=== PATIENT | male | born 1960 | race Caucasian/White ===

== ENCOUNTER 2017-05-04 07:39 | Emergency (ER) | payer OTHER ==
[~2017-05-04 07:39] MED LIST: ALLO300T PO; DICL1TAB5 PO; LANS30CA PO; LORA2TAB89 PO; MAGN400T22 PO; METO100T2 PO; OMEP20CA5 PO; PRED20TA PO; QUIN40TA7 PO; TORS20TA2 PO
[2017-05-04] MEDS ORDERED: MORPHINE SULFATE 4 MG/ML DISP.SYRIN. IV/SQ PRN (08:15)
--- NOTE | 2017-05-04 08:17 | PHYS DOC ---
General Chief Complaint: CHEST PAIN Stated Complaint: CHEST PAIN Time Seen by MD: 07:40 Source: patient, old records Exam Limitations: no limitations Problems: History of Present Illness Initial Comments Patient is a 56-year-old male with history of alcoholism and esophageal strictures/dilatation comes [facility] complaining of chest pain. Patient states that he went to bed feeling well last night, he awoke approximately 0600 today feeling lightheaded and nauseous with anterior chest pain radiating to his jaw described as an achiness 3 out of 10 no exacerbating or relieving factors. He has associated nausea and is dry heaving on ED arrival but has had no vomiting. He denies any abdominal pain, fever chills sweats dyspnea or dysphagia. Patient underwent esophageal dilatation for strictures approximately 10 years ago he did not follow-up as instructed for recheck. He has history of alcoholism at times drinking more than a pint of bourbon daily. He says he last drank yesterday "a few drinks." He denies history of alcohol withdrawal or seizures. Last by mouth intake was spaghetti yesterday for dinner, last bowel movement was this morning described as normal. Patient follows with Dr. Qureshi for primary care needs. Timing/Duration: 1-3 hours Severity: mild Modifying Factors: improves with other Associated Symptoms: chest pain, malaise, nausea/vomiting, other Allergies: Coded Allergies: Sulfa (Sulfonamide Antibiotics) (Verified Allergy, Intermediate, 03/26/14) Past Medical History Medical History: other (GERD, esophageal strictures, hypertension) Surgical History: other (esophageal dilatation, bladder repair, shoulder) Family History Significant Family History: cancer Social History Smoker: non-smoker Alcohol: heavy Drugs: none Review of Systems Constitutional: denies chills, denies diaphoresis, denies fever, denies malaise Respiratory: denies cough (she is of), denies shortness of breath, denies wheezing Cardiovascular: chest pain, denies edema, palpitations, denies syncope Gastrointestinal: denies abdominal pain, denies diarrhea, nausea, denies vomiting Genitourinary: denies dysuria, denies frequency, denies hematuria Musculoskeletal: denies back pain, denies joint swelling, neck pain Psychiatric/Neurological: denies headache, denies numbness, denies paresthesia Physical Exam General Appearance: WD/WN, no apparent distress Eyes: bilateral eye normal inspection, bilateral eye PERRL, bilateral eye EOMI Ear, Nose, Throat: hearing grossly normal, normal ENT inspection (dry membranes ), normal pharynx Neck: non-tender, full range of motion Respiratory: chest non-tender, normal breath sounds, no respiratory distress, no accessory muscle use Cardiovascular: normal peripheral pulses, no edema, tachycardia Gastrointestinal: normal bowel sounds, non tender, soft, no organomegaly, no pulsatile mass, other (large ventral hernia noted reducible and nontender) Back: no CVA tenderness, no vertebral tenderness Extremities: non-tender, normal inspection, no pedal edema, no calf tenderness , pelvis stable Neurologic/Psychiatric: chain splitter II-XII nml as tested, no motor/sensory deficits, alert, oriented x 3, depressed affect (flat affect no suicidal or homicidal ideation) Skin: normal color, warm/dry Orders, Labs, Meds EKG: Normal sinus rhythm 96 bpm, no STEMI criteria. Interpreted by Dr. Robin. PATIENT: NAVI WHITE ACCOUNT: [id number] : 1960 LOCATION: ER AGE: 56 SEX: M EXAM STATUS: REG ER ORD. PHYSICIAN: BETTE ROBIN DO REASON: cp, n/v PROCEDURE: ACUTE ABDOMEN SERIES Acute abdomen series with chest, 3 views, 05/04/2017: History: Chest pain and nausea Gas is present in large and small bowel without significant bowel distention. There are small scattered air-fluid levels in the GI tract. No free air is seen in the abdomen. There is no evidence of organomegaly. Lower pelvic calcifications are compatible with phleboliths. The heart size and pulmonary vascularity are normal. No pulmonary infiltrates are seen. There is no evidence of pleural fluid. IMPRESSION: Small scattered air-fluid levels in the GI tract suggest a mild ileus. DICTATED AND SIGNED BY: KRZYSZTOF CABRERA MD DATE: 05/04/17 0843 CC: BETTE ROBIN DO; NAVI QURESHI MD ~ mg 1.2, t. bili 1.4, lactic acid 3.4 500cc NS bolus, banana bag, zofran 4mg, pepcid 20mg IV given 1002: Due the patient's symptoms and risk factors he will need to be admitted to the hospital for serial cardiac enzymes to rule out FL. While inpatient his CKs will likely need to be monitored due to the recent cocaine abuse. Due to patient insurance issues he may not be admitted to this facility I discussed the patient with Dr. Castillo transfer team physician at [facility]. He took my report and his currently trying to procure a bed for the patient. We are waiting for the transfer team to return our call. 1020: Call received, pt accepted by Dr Castillo to [facility] for direct admission. Pt remains stable no new/progressive complaints. IMPRESSIONS: Chest pain rule out FL Hypomagnesemia Metabolic acidosis likely secondary to alcohol Cocaine abuse Alcohol dependence Tobaccoism Departure Time of Disposition: 10:12 Disposition: 02 XFER SHT-TRM HOSP Diagnosis: CP r/o FL, hypomagnesemia, cocaine abuse, etoh dep Condition: STABLE Additional Instructions: EMS transfer to [facility] Dr Castillo is accepting. BETTE ROBIN DO May 04, 2017 08:16
[2017-05-04 08:30] LABS: BASO # 0.1 x10^3/uL (0.0-0.2); BASO % 1 % (0-3); EOS # 0.1 x10^3/uL (0.0-0.7); EOS % 1 % (0-3); HEMATOCRIT 43.1 % (39.0-53.0); HEMOGLOBIN 14.6 g/dL (13.0-17.5); LYMPH # 1.9 x10^3/uL (1.0-4.8); LYMPH % 26 % (24-48); MEAN CORPUSCULAR HEMOGLOBIN 35 pg (25-35); MEAN CORPUSCULAR HGB CONC 34 g/dL (31-37); MEAN CORPUSCULAR VOLUME 102 fL (79-100); MONO # 0.6 x10^3/uL (0.0-1.1); MONO % 7 % (0-9); NEUT # 4.8 x10^3uL (1.8-7.7); NEUT % 64 % (31-73); PLATELET COUNT 190 x10^3/uL (140-400); RED BLOOD COUNT 4.22 x10^6/uL (4.30-5.70); RED CELL DISTRIBUTION WIDTH 14.2 % (11.5-14.5); WHITE BLOOD COUNT 7.4 x10^3/uL (4.0-11.0)
[2017-05-04] MEDS ORDERED: NITROGLYCERIN SUBLINGUAL 0.4 MG BOTTLE OF 25. SL PRN (08:30)
[2017-05-04] MEDS ORDERED: FAMOTIDINE 20 MG/2 ML VIAL IVP ONE (08:30)
[2017-05-04] MEDS ORDERED: IV NORMAL SALINE 1,000ML 500 ML IV SCH (08:30)
[2017-05-04] MEDS ORDERED: ONDANSETRON PF 4 MG/2 ML VIAL. IV ONE (08:30)
[2017-05-04] MEDS ORDERED: ASPIRIN 81 MG TAB.CHEW PO ONE (08:30)
[2017-05-04 08:42] LABS: ALBUMIN 3.7 g/dL (3.4-5.0); ALBUMIN/GLOBULIN RATIO 1.1 (1.0-1.7); CALCIUM 8.8 mg/dL (8.5-10.1); CREATININE 0.9 mg/dL (0.7-1.3); GFR 87.9; MAGNESIUM 1.2 mg/dL (1.8-2.4); POTASSIUM 3.8 mmol/L (3.5-5.1); TOTAL BILIRUBIN 1.4 mg/dL (0.2-1.0); TOTAL PROTEIN 7.2 g/dL (6.4-8.2)
--- NOTE | 2017-05-04 08:47 | RAD ---
Acute abdomen series with chest, 3 views, 05/04/2017: History: Chest pain and nausea Gas is present in large and small bowel without significant bowel distention. There are small scattered air-fluid levels in the GI tract. No free air is seen in the abdomen. There is no evidence of organomegaly. Lower pelvic calcifications are compatible with phleboliths. The heart size and pulmonary vascularity are normal. No pulmonary infiltrates are seen. There is no evidence of pleural fluid. IMPRESSION: Small scattered air-fluid levels in the GI tract suggest a mild ileus.
[2017-05-04 08:53] LABS: AMPHETAMINE/METHAMPHETAMINE NEG (NEG); BARBITURATES NEG (NEG); BENZODIAZEPINES NEG (NEG); CANNABINOIDS NEG (NEG); COCAINE POS (NEG); METHADONE NEG (NEG); OPIATES NEG (NEG); PHENCYCLIDINE NEG (NEG)
[2017-05-04 09:00] LABS: BACTERIA,URINE 0 /HPF (0-FEW); BILIRUBIN,URINE NEG (NEG); CLARITY,URINE HAZY; COLOR,URINE AMBER; GLUCOSE,URINE NEG (NEG); HYALINE CASTS, URINE OCC /HPF; NITRITE,URINE NEG (NEG); RBC,URINE 0 /HPF (0-2); SQUAMOUS EPITHELIAL CELL,UR OCC /LPF; UROBILINOGEN,URINE 1 mg/dL (0.2 mg/dL); WBC,URINE 0 /HPF (0-4)
[2017-05-04] MEDS ORDERED: MAGNESIUM CHLORIDE ER 64 MG TABLET.ER PO SCH (09:00)
[2017-05-04] MEDS ORDERED: MVI, ADULT NO.4 WITH VIT K 10 ML, FOLIC ACID SYRINGE for ER 1 MG, THIAMINE 100 MG in IV... IV SCH ×4 (09:30)
[2017-05-04 11:55] VITALS: BP 137/92
--- NOTE | 2017-05-04 15:11 | EKG ---
[address] [address] Test Date: 2017-05-04 Test Time: 08:05:03 Pat Name: NAVI WHITE Department: Room: Gender: M Director Life: BART : 1960 Requested By: BETTE ROBIN Order Number: [id number] Reading MD: Indra Arzola Measurements Intervals [place] Rate: 96 P: 34 CT: 136 QRS: 39 QRSD: 74 T: 20 QT: 346 QTc: 444 Interpretive Statements SINUS RHYTHM NON-SPECIFIC ST/T CHANGES Electronically Signed On 05-07-2017 7:49:53 CDT by Indra Arzola
[2017-05-05] MEDS ORDERED: MAGNESIUM CHLORIDE ER 64 MG TABLET.ER PO SCH (09:00)
== END 2017-05-04 11:55 | disposition short-term general hospital (02) ==
LOC: ER 07:39
DX: R07.89 Other chest pain (principal); E83.42 Hypomagnesemia; E87.2 Acidosis; F14.10 Cocaine abuse, uncomplicated; F10.20 Alcohol dependence, uncomplicated; K21.9 Gastro-esophageal reflux disease without esophagitis; I10 Essential (primary) hypertension; Z88.2 Allergy status to sulfonamides
CPT/HCPCS: 36415; 74022; 80053; 80307; 81001; 82550; 83605; 83690; 83735; 83880; 84484; 85027; 85379; 85610; 85730; 87040; 93005; 96361; 96365; 96375; 99285; G0480; J2405; S0028; G0479; J7030

== ENCOUNTER → 2019-12-27 | Outpatient (CLI) | payer OTHER ==
[~2019-12-27] MED LIST changes: -METO100T2 PO; +METO100T7 PO; +QUIN40TA16 PO; -QUIN40TA7 PO
[2019-12-27 10:39] LABS: BASO # 0.1 x10^3/uL (0.0-0.2); BASO % 1 % (0-3); EOS # 0.1 x10^3/uL (0.0-0.7); EOS % 1 % (0-3); HEMATOCRIT 38.7 % (39.0-53.0); HEMOGLOBIN 12.7 g/dL (13.0-17.5); LYMPH # 1.8 x10^3/uL (1.0-4.8); LYMPH % 35 % (24-48); MEAN CORPUSCULAR HEMOGLOBIN 35 pg (25-35); MEAN CORPUSCULAR HGB CONC 33 g/dL (31-37); MEAN CORPUSCULAR VOLUME 105 fL (79-100); MONO # 0.6 x10^3/uL (0.0-1.1); MONO % 12 % (0-9); NEUT # 2.7 x10^3uL (1.8-7.7); NEUT % 51 % (31-73); PLATELET COUNT 125 x10^3/uL (140-400); RED CELL DISTRIBUTION WIDTH 14.9 % (11.5-14.5); WHITE BLOOD COUNT 5.2 x10^3/uL (4.0-11.0)
[2019-12-27 10:47] LABS: CALCIUM 8.1 mg/dL (8.5-10.1); CREATININE 0.9 mg/dL (0.7-1.3); DIRECT BILIRUBIN 0.2 mg/dL (0.0-0.2); POTASSIUM 4.1 mmol/L (3.5-5.1); TOTAL BILIRUBIN 0.4 mg/dL (0.2-1.0); TOTAL PROTEIN 6.5 g/dL (6.4-8.2); URIC ACID 4.4 mg/dL (3.5-7.2)
[2019-12-27 18:52] LABS: FREE T4 0.82 ng/dL (0.76-1.46); THYROID STIM HORMONE (TSH) 1.972 uIU/mL (0.358-3.740)
== END | disposition home or self-care (01) ==
LOC: PMG 09:53
PROVIDERS: ATTEND Physician Assistant
DX: I10 Essential (primary) hypertension (principal); R42 Dizziness and giddiness; K21.9 Gastro-esophageal reflux disease without esophagitis; M10.9 Gout, unspecified; R53.1 Weakness; R26.89 Other abnormalities of gait and mobility
CPT/HCPCS: 36415; 80048; 80061; 80076; 84439; 84443; 84550; 85025

== ENCOUNTER → 2020-02-06 | Outpatient (CLI) | payer OTHER ==
[2020-02-07 21:06] LABS: ANA INTERP Negative (.)
[2020-02-08 18:07] LABS: ALBUM 3.4 g/dL (2.9-4.4); ALPHA 1 0.3 g/dL (0.0-0.4); ALPHA 2 0.8 g/dL (0.4-1.0); BETA 1.3 g/dL (0.7-1.3); GAMMA 0.7 g/dL (0.4-1.8); PROTEIN TOTAL 6.5 g/dL (6.0-8.5); SPEP AG RATIO 1.1 (0.7-1.7)
== END | disposition home or self-care (01) ==
LOC: LAB 11:10
PROVIDERS: ATTEND Psychiatry & Neurology Neurology with Special Qualifications in Child Neurology
DX: G62.1 Alcoholic polyneuropathy (principal); R26.9 Unspecified abnormalities of gait and mobility; F10.20 Alcohol dependence, uncomplicated; R20.0 Anesthesia of skin; R53.1 Weakness
CPT/HCPCS: 36415; 82607; 82746; 84165; 86038; 86140

== ENCOUNTER → 2020-02-06 | Outpatient (CLI) | payer OTHER ==
--- NOTE | 2020-02-06 11:36 | RAD ---
EXAM: Abdomen sonogram. HISTORY: Elevated liver enzyme laboratory values. TECHNIQUE: Sonographic imaging of the abdomen was performed. COMPARISON: None. FINDINGS: The liver is normal in size. There is hepatic steatosis. There is mild common bile duct dilatation for patient age, measuring 8.5 mm. There is cholelithiasis. There is pericholecystic fluid. No gallbladder wall thickening is seen. The right kidney measures 8.6 cm [id number]. There is no hydronephrosis. The pancreas and inferior vena cava are obscured due to bowel gas. IMPRESSION: 1. Hepatic steatosis. 2. Cholelithiasis. There is nonspecific pericholecystic fluid. However, there is no gallbladder wall thickening to suggest cholecystitis. Correlate with symptomatology. 3. Decreased right renal size due to measurement technique or mild atrophy. 4. Dilated common bile duct. ERCP or MRCP may be useful if there is concern for a sonographically occult obstructing etiology. Electronically signed by: Jany Day MD (02/06/2020 11:33 AM) [id number]
== END | disposition home or self-care (01) ==
LOC: US 10:48
PROVIDERS: ATTEND Physician Assistant
DX: K76.0 Fatty (change of) liver, not elsewhere classified (principal); K80.20 Calculus of gallbladder without cholecystitis without obstruction; K83.8 Other specified diseases of biliary tract
CPT/HCPCS: 76705

== ENCOUNTER 2020-05-21 10:46 | Inpatient (IN) | payer OTHER ==
[~2020-05-21] VITALS: Ht 165.1 cm; Wt 61.0 kg
[2020-05-21 11:41] LABS: BASO % 0 % (0-3); EOS % 1 % (0-3); HEMATOCRIT 37.7 % (39.0-53.0); HEMOGLOBIN 12.8 g/dL (13.0-17.5); LYMPH # 1.1 x10^3/uL (1.0-4.8); LYMPH % 23 % (24-48); MEAN CORPUSCULAR HEMOGLOBIN 35 pg (25-35); MEAN CORPUSCULAR HGB CONC 34 g/dL (31-37); MEAN CORPUSCULAR VOLUME 103 fL (79-100); MONO # 0.6 x10^3/uL (0.0-1.1); MONO % 13 % (0-9); NEUT # 3.1 x10^3uL (1.8-7.7); NEUT % 63 % (31-73); PLATELET COUNT 96 x10^3/uL (140-400); RED BLOOD COUNT 3.67 x10^6/uL (4.30-5.70); RED CELL DISTRIBUTION WIDTH 14.8 % (11.5-14.5); WHITE BLOOD COUNT 4.9 x10^3/uL (4.0-11.0)
[2020-05-21] MEDS ORDERED: IV NORMAL SALINE 1,000ML 1,000 ML IV ONE (11:45)
[2020-05-21 11:47] LABS: CALCIUM 8.3 mg/dL (8.5-10.1); CREATININE 2.8 mg/dL (0.7-1.3); GFR 23.5
[2020-05-21 11:53] LABS: ALBUMIN 3.2 g/dL (3.4-5.0); MAGNESIUM 1.2 mg/dL (1.8-2.4); TOTAL BILIRUBIN 1.7 mg/dL (0.2-1.0); TOTAL PROTEIN 6.5 g/dL (6.4-8.2)
--- NOTE | 2020-05-21 12:10 | PHYS DOC ---
Past History Past Medical History: Cancer, Hypertension, Pancreatitis Past Surgical History: Other Additional Past Surgical Histo: BLADDER REPAIR S/P FALL; MULTIPLE SKIN CANCER R EOVED Smoking: Non-smoker Alcohol Use: Heavy Drug Use: None General Adult EDM: Chief Complaint: HYPOTENSION HPI: HPI: Patient is a 59-year-old male who was taken here for evaluation from home due to generalized weakness and low blood pressure. Patient has history of skin cancer, he is under treatment currently. He had not been feeling well since November. Patient said he has no appetite, he does not eat much. His home health nurse came by and check on him today and found that her blood pressure was low so she recommended for him to come in for evaluation. Patient denies any cough or fever, no nausea vomiting. Patient feels aching all over. Review of Systems: Review of Systems: Constitutional: Denies fever or chills . Positive for generalized weakness. Eyes: Denies change in visual acuity HENT: Denies nasal congestion or sore throat Respiratory: Denies cough or shortness of breath Cardiovascular: Denies chest pain or edema GI: Denies abdominal pain, nausea, vomiting, bloody stools or diarrhea : Denies dysuria Musculoskeletal: Denies back pain , positive for joint pain Integument: Denies rash Neurologic: Denies headache, focal weakness or sensory changes Endocrine: Denies polyuria or polydipsia Lymphatic: Denies swollen glands Psychiatric: Denies depression or anxiety Heart Score: Risk Factors: Risk Factors: DM, Current or recent (<one month) smoker, HTN, HLP, family history of CAD, obesity. Risk Scores: Score 0 - 3: 2.5% MACE over next 6 weeks - Discharge Home Score 4 - 6: 20.3% MACE over next 6 weeks - Admit for Clinical Observation Score 7 - 10: 72.7% MACE over next 6 weeks - Early Invasive Strategies Current Medications: Current Meds: Current Medications Medications (Trade) Dose Ordered Sig/Alyssia Start Time Stop Time Status Last Admin Dose Admin Magnesium Sulfate 50 ml @ 25 mls/hr 1X ONCE 05/21/20 12:15 05/21/20 14:14 UNV Sodium Chloride 1,000 ml @ 1,000 mls/hr 1X ONCE 05/21/20 11:45 05/21/20 12:44 05/21/20 11:43 1,000 MLS/HR Allergies: Allergies: Allergies Coded Allergies Type Severity Reaction Last Updated Verified Sulfa (Sulfonamide Antibiotics) Allergy Intermediate 05/21/20 Yes Physical Exam: PE: Constitutional: Well developed, well nourished, no acute distress, non-toxic appearance. [] HENT: Normocephalic, atraumatic, bilateral external ears normal, oropharynx moist, no oral exudates, nose normal. [] Eyes: PERRLA, EOMI, conjunctiva normal, no discharge. [] Neck: Normal range of motion, no tenderness, supple, no stridor. [] Cardiovascular:Heart rate regular rhythm, no murmur [] Lungs & Thorax: Bilateral breath sounds clear to auscultation [] Abdomen: Bowel sounds normal, soft, no tenderness, no masses, no pulsatile masses. [] Skin: Warm, dry, no erythema, no rash. [] Back: No tenderness, no CVA tenderness. [] Extremities: No tenderness, no cyanosis, no clubbing, ROM intact, no edema. [] Neurologic: Alert and oriented X 3, normal motor function, normal sensory function, no focal deficits noted. [] Psychologic: Affect normal, judgement normal, mood normal. [] Current Patient Data: Labs: Laboratory Tests Test 05/21/20 11:25 White Blood Count 4.9 x10^3/uL (4.0-11.0) Red Blood Count 3.67 x10^6/uL (4.30-5.70) L Hemoglobin 12.8 g/dL (13.0-17.5) L Hematocrit 37.7 % (39.0-53.0) L Mean Corpuscular Volume 103 fL (79-100) H Mean Corpuscular Hemoglobin 35 pg (25-35) Mean Corpuscular Hemoglobin Concent 34 g/dL (31-37) Red Cell Distribution Width 14.8 % (11.5-14.5) H Platelet Count 96 x10^3/uL (140-400) L Neutrophils (%) (Auto) 63 % (31-73) Lymphocytes (%) (Auto) 23 % (24-48) L Monocytes (%) (Auto) 13 % (0-9) H Eosinophils (%) (Auto) 1 % (0-3) Basophils (%) (Auto) 0 % (0-3) Neutrophils # (Auto) 3.1 x10^3uL (1.8-7.7) Lymphocytes # (Auto) 1.1 x10^3/uL (1.0-4.8) Monocytes # (Auto) 0.6 x10^3/uL (0.0-1.1) Eosinophils # (Auto) 0.0 x10^3/uL (0.0-0.7) Basophils # (Auto) 0.0 x10^3/uL (0.0-0.2) Sodium Level 140 mmol/L (136-145) Potassium Level 4.0 mmol/L (3.5-5.1) Chloride Level 100 mmol/L (98-107) Carbon Dioxide Level 26 mmol/L (21-32) Anion Gap 14 (6-14) Blood Urea Nitrogen 71 mg/dL (8-26) H Creatinine 2.8 mg/dL (0.7-1.3) H Estimated GFR (Cockcroft-Gault) 23.5 BUN/Creatinine Ratio 25 (6-20) H Glucose Level 120 mg/dL (70-99) H Calcium Level 8.3 mg/dL (8.5-10.1) L Magnesium Level 1.2 mg/dL (1.8-2.4) L Total Bilirubin 1.7 mg/dL (0.2-1.0) H Aspartate Amino Transferase (AST) 43 U/L (15-37) H Alanine Aminotransferase (ALT) 43 U/L (16-63) Alkaline Phosphatase 105 U/L (46-116) Total Protein 6.5 g/dL (6.4-8.2) Albumin 3.2 g/dL (3.4-5.0) L Albumin/Globulin Ratio 1.0 (1.0-1.7) Vital Signs: Vital Signs Date Time Temp Pulse Resp B/P (MAP) Pulse Ox O2 Delivery O2 Flow Rate FiO2 05/21/20 11:30 92 12 140/66 (90) 100 Room Air 05/21/20 11:05 98.9 EKG: EKG: [] Radiology/Procedures: Radiology/Procedures: [] Course & Med Decision Making: Course & Med Decision Making Pertinent Labs and Imaging studies reviewed. (See chart for details) Patient is a 59-year-old male who was evaluated here in the ER due to general weakness, body ache. Patient was found to be dehydrated, acute renal failure, low magnesium level. Patient was given IV fluids and 2 g of magnesium sulfate replacement. Patient will need to be admitted to hospital for further evaluation. Discussed with Dr. Lynn who wanted to admit patient to this hospital for IV hydration first. Dragon Disclaimer: Dragon Disclaimer: This electronic medical record was generated, in whole or in part, using a voice recognition dictation system. Departure Departure: Impression: Primary Impression: Acute renal failure Additional Impressions: Dehydration Hypomagnesemia syndrome Disposition: ADMITTED INPATIENT (Dr. Lynn) Condition: STABLE Referrals: EDILIA SANDOVAL (PCP) Justification of Admission: Justification of Admission: Justification of Admission Dx: Yes Acute Renal Failure: 3-Fold Rise in Serum Crea SAGE MAYER DO May 21, 2020 12:10
[2020-05-21] MEDS ORDERED: MAGNESIUM SULFATE 2GM 50 ML IV ONE (12:15)
[2020-05-21 12:29] LABS: BILIRUBIN,URINE NEG (NEG); CLARITY,URINE HAZY; COLOR,URINE YELLOW; GLUCOSE,URINE NEG (NEG)
[2020-05-21 12:30] LABS: BACTERIA,URINE 0 /HPF (0-FEW); NITRITE,URINE NEG (NEG); SQUAMOUS EPITHELIAL CELL,UR FEW /LPF; UROBILINOGEN,URINE 0.2 mg/dL (0.2 mg/dL)
[2020-05-21 12:31] LABS: HYALINE CASTS, URINE FEW /HPF
[2020-05-21] MEDS: IV NORMAL SALINE 1,000ML 1,000 ML IV SCH (13:50)
[2020-05-21 15:47] VITALS: BP 103/66
[2020-05-21] MEDS ORDERED: ONDANSETRON PF 4 MG/2 ML VIAL. IVP PRN (16:00)
[2020-05-21] MEDS ORDERED: ACETAMINOPHEN 325 MG TABLET PO PRN (16:00)
--- NOTE | 2020-05-21 16:00 | NUR ---
The patient, NAVI WHITE, 59 y/o, M admitted by NELLY LUA MD, was given written information regarding hospital policies, unit procedures and contact persons. Valuables were checked and belongings at bedside. Pt admitted from ED with severe dehydration. pt states he has been generally weak since November. states he uses a wheelchair to get around at home and "cannot walk".
[2020-05-21 18:00] VITALS: BP 130/74
[2020-05-21] MEDS ORDERED: DOXY100C2 PO (18:03)
--- NOTE | 2020-05-21 18:23 | HP ---
ADMIT DATE: 05/21/2020 HISTORY OF PRESENT ILLNESS: The patient is a 59-year-old male patient who was brought to the Emergency Room for evaluation from home due to generalized weakness and low blood pressure. He has a history of skin cancer. He is under treatment. He apparently has not been feeling well since November. According to his , he has been alcoholic throughout his life, but his drinking has worsened since she was fired from [employer] in October of this year. She stated he has poor appetite. He does not eat much. He has home health nurse came by and check on him and found his blood pressure to be still low, so I recommended for him to come in for evaluation. The patient denies any cough, fever, nausea, vomiting. He apparently was seen before at [facility] by Dr. Mcdermott and has had an MRI, which was unremarkable. He also had a skin cancer that was removed about 8 days ago from his right shoulder; however, he is not giving any useful information. He claims that he has some form of odynophagia and that he cannot eat or drink because it is painful. He denied any previous medical illness, although his said he is known to have hypertension, pancreatitis as well as skin cancer. PAST SURGICAL HISTORY: Significant for bladder repair, status post fall and multiple skin cancer removed. ALLERGIES: He is allergic to SULFA DRUGS. MEDICATIONS: He is on no medication by prescription or otherwise. FAMILY HISTORY: He has one brother still alive and older. One sister still alive and younger. Does not know whether have any medical problem. His father at the age of 70 because of CVA. His mother at the age of 63, but does not know the cause of her . SOCIAL HISTORY: He is , has no children. He does not smoke or use drugs, but he is a heavy alcohol drinker. According to his , he has been a heavy drinker all his life, but his drinking habit has worsened since October when she was fired from [employer]. He used to be steal batteries. He stated that he has been unable to walk, since November has been mostly wheelchair bound. PHYSICAL EXAMINATION: GENERAL: On arrival to the Emergency Room, he looked markedly emaciated with no pallor, jaundice, cyanosis or thyromegaly. No jugular venous distention. No limb edema. VITAL SIGNS: His heart rate was 97, blood pressure was 107/68, temperature was 98.9, respiratory rate was 15 and oxygen saturation was 100%. HEAD, EYES, EARS, NOSE AND THROAT: Normocephalic, atraumatic. NECK: Supple. HEART: Showed normal first and second heart sounds. No gallop or murmur. CHEST: Clear to auscultation. No crepitation or rhonchi. ABDOMEN: Distended with tenderness and dull percussion noted. NEUROLOGIC: The patient is awake, alert, but seemed to be very slow to answer. All his cranial nerves seem to be grossly intact. He seems to be able to move his upper extremities to much good extent than lower extremities, apparently was mostly wheelchair bound. LABORATORY DATA: His lab work this morning showed a white cell count of 4900, hemoglobin 12.8, hematocrit 37.7, MCV 103 and platelet count of 96,000 with normal manual differential. His serum sodium was 140, potassium 4, chloride 100, bicarbonate 26, anion gap of 14, BUN 71, creatinine 2.8, estimated GFR was 23 mL per minute. His glucose 129, calcium was 8.3, magnesium was 1.2. Total bilirubin 1.7. AST was slightly elevated. ALT and alkaline phosphatase normal. Total protein 6.5, albumin was 3.2. His urinalysis showed the urine was yellow, hazy with a pH of 5, specific gravity 1.015. The urine was negative for protein, glucose, trace of ketones, negative for blood, nitrite or leukocyte esterase, 3-5 rbc's, 5-10 wbc's, and no bacteria. ASSESSMENT AND PLAN: In summary, this is a 59-year-old male patient who apparently has been a heavy drinker before. According to his , his drinking habit has worsened since she was fired from [employer]. He has been wheelchair bound, unable to walk since November of this year. He did complain that he has what seemed to be dysphagia and odynophagia, has been able to eat and drink and was admitted with acute renal failure and he has had bladder repair that he sustained after a fall. My plan is to continue with IV fluid. I am concerned that he might have bladder outlet obstruction and we will arrange for him to scan his bladder and we might have to do a CT scan of the abdomen and pelvis without contrast. So in summary, this is a 59-year-old male patient with marked weakness and almost functional paraplegia, acute kidney injury; I do not have any baseline to compare with. His creatinine was 0.9 mg on 12/27/2019 indicating that this is an acute on chronic kidney injury. NELLY LUA MD DR: LEE/salinas JOB#: [id number] / [id number]
[2020-05-21] MEDS ORDERED: chlordiazePOXIDE HCL 25 MG CAPSULE PO PRN (18:30)
--- NOTE | 2020-05-21 19:25 | RAD ---
Study: CT abdomen/pelvis without intravenous contrast Indication: Abdominal pain and abdominal distention. Comparison: None. Technique: Helical CT imaging performed of the abdomen and pelvis without the use of intravenous contrast. Sagittal and coronal reformats were obtained. One or more of the following individualized dose reduction techniques were utilized for this examination: 1. Automated exposure control 2. Adjustment of the mA and/or kV according to patient size 3. Use of iterative reconstruction technique. Findings: Inherently limited evaluation without intravenous contrast. Mild atelectasis at the lung bases. Hepatic steatosis. Gallstones and likely layering sludge without CT findings of acute cholecystitis. Unremarkable pancreas, spleen and adrenal glands. No acute process seen to involve either kidney or collecting system. Within normal limits bladder. Scattered colonic diverticuli without diverticulitis. The anorectal junction appears mildly thick walled but circumferentially and there are no active inflammatory changes. Just the anterior margin of a short segment of transverse colon herniates through the ventral abdominal wall, image 62 series 2. The appendix is normal. Nonobstructed small bowel. A small portion of small bowel wall partially herniates through the ventral abdominal wall as seen on image 75 series 9. No pneumatosis or perforation. Unremarkable stomach. Presumed duodenal diverticulum at the pancreatic head, image 46 series 2. No inflammatory changes around this finding to suggest an ulcer. Minimal calcific atherosclerosis. Nonaneurysmal aorta. No lymphadenopathy. No free fluid or gas. No acute or aggressive osseous process. Advanced discogenic arthrosis at L5-S1. Impression: 1. Just the antimesenteric border of a short segment of transverse colon herniates through the ventral midline abdominal wall 7 to 8 cm above the umbilicus (image 45 series 5). There are no findings of ischemia to the colon at this location but correlate for pinpoint tenderness to suggest incarceration of a Moseley hernia. 2. About 4 cm above the umbilicus, the antimesenteric border of very small segment of small bowel also protrudes into the ventral fascia but does not fully herniate (image 51 series 5). This is favored unlikely a symptomatic finding at this time. No bowel obstruction or perforation. 3. Gallstones and layering sludge without findings of acute cholecystitis. 4. Hepatic steatosis. Electronically signed by: NASIR ANDRADE MD (05/21/2020 7:22 PM) [id number]
--- NOTE | 2020-05-21 22:03 | NUR ---
PT with noted apneic episodes while asleep, desaturating to lowest 88% on RA. PT with immediate recovery, less than 3 seconds with saturations back to his normal of around 98%.
[2020-05-21 23:02] VITALS: BP 104/71
[2020-05-22] MEDS: IV NORMAL SALINE 1,000ML 1,000 ML IV SCH ×3 (00:16→20:36)
[2020-05-22 08:00] VITALS: BP 129/87
[2020-05-22] MEDS: chlordiazePOXIDE HCL 25 MG CAPSULE PO PRN (08:28)
[2020-05-22 09:16] LABS: BASO % 1 % (0-3); EOS % 1 % (0-3); HEMATOCRIT 37.6 % (39.0-53.0); HEMOGLOBIN 12.5 g/dL (13.0-17.5); LYMPH # 1.2 x10^3/uL (1.0-4.8); LYMPH % 35 % (24-48); MEAN CORPUSCULAR HEMOGLOBIN 35 pg (25-35); MEAN CORPUSCULAR HGB CONC 33 g/dL (31-37); MEAN CORPUSCULAR VOLUME 104 fL (79-100); MONO # 0.3 x10^3/uL (0.0-1.1); MONO % 10 % (0-9); NEUT # 1.8 x10^3uL (1.8-7.7); NEUT % 53 % (31-73); PLATELET COUNT 84 x10^3/uL (140-400); RED BLOOD COUNT 3.61 x10^6/uL (4.30-5.70); RED CELL DISTRIBUTION WIDTH 14.8 % (11.5-14.5); WHITE BLOOD COUNT 3.3 x10^3/uL (4.0-11.0)
[2020-05-22 09:30] LABS: ALBUMIN 2.9 g/dL (3.4-5.0); ALBUMIN/GLOBULIN RATIO 0.9 (1.0-1.7); CALCIUM 8.5 mg/dL (8.5-10.1); CREATININE 1.2 mg/dL (0.7-1.3); GFR 62.4; MAGNESIUM 1.4 mg/dL (1.8-2.4); POTASSIUM 3.8 mmol/L (3.5-5.1); TOTAL BILIRUBIN 1.2 mg/dL (0.2-1.0); TOTAL PROTEIN 6.3 g/dL (6.4-8.2)
[2020-05-22] MEDS: MVI, ADULT NO.4 WITH VIT K 10 ML, THIAMINE INJ 100 MG, FOLIC ACID INJ 1 MG in IV NORMAL... IV SCH ×4 (09:39)
--- NOTE | 2020-05-22 09:50 | NUR ---
Pt continues to be a poor historian. He does know the date and place. PT is starting to feel more anxious. Labs was unsuccessful after 3 attempts this am. Ultrasound was used to draw brachial vein in upper arm. Delta JOHNSON
[2020-05-22] MEDS ORDERED: MAGNESIUM SULFATE 2GM 50 ML IV ONE ×2 (10:30→12:40)
[2020-05-22 11:00] VITALS: BP 102/67
--- NOTE | 2020-05-22 15:54 | NUR ---
pt was assisted to chair by pt/ot. He did walk with the walker to the chair with total assistance than was unable to sit up in the chair and was falling over. PT continues to be severely weak and cannot care for him at home. Talked about swing unit or nursing rehab. Delta JOHNSON
[2020-05-22 16:16] VITALS: BP 110/67
--- NOTE | 2020-05-22 18:55 | RAD ---
STUDY: 1. CT cervical spine without contrast 2. CT thoracic spine without contrast 2. CT lumbar spine without contrast INDICATION: Arm weakness. Back pain. Bowel incontinence. COMPARISON: CT abdomen/pelvis 05/21/2020. TECHNIQUE: Axial CT imaging of the cervical, thoracic and lumbar spine performed without the use of intravenous or intrathecal contrast. Coronal and sagittal reformats were obtained. One or more of the following individualized dose reduction techniques were utilized for this examination: 1. Automated exposure control 2. Adjustment of the mA and/or kV according to patient size 3. Use of iterative reconstruction technique. FINDINGS: Cervical spine: No acute fracture or aggressive osseous process. No traumatic malalignment. Discogenic arthrosis is greatest at C5-C6 and C6-C7. Uncovertebral joint hypertrophy most notable at these levels as well. Varying extent of facet degeneration. No severe osseous encroachment on the central canal. Multilevel osseous neural foraminal encroachment but appearing greatest on the left at C5-C6 and C6-C7. No prevertebral edema. Thoracic spine: No acute fracture or aggressive osseous process. Maintained vertebral body height and alignment. No advanced discogenic arthrosis. Mild facet degeneration at a few levels but greatest on the left at T1-T2 and T2-T3. No significant osseous encroachment on the central canal or neural foramina. No prevertebral or dorsal paraspinous edema. No acute abnormality seen to involve the visualized mediastinal contents or lungs. Lumbar spine: No acute fracture or aggressive osseous process. Maintained vertebral body height. Discogenic arthrosis at L5-S1 is moderate in severity. No advanced facet degeneration. No osseous encroachment on the central canal. Mild left and moderate right osseous neural foraminal stenosis. Intra-abdominal findings as detailed on the recent CT abdomen/pelvis. IMPRESSION: Cervical spine: 1. No acute osseous abnormality. 2. Multilevel, multifactorial degenerative changes collectively greatest at C5-C6 and C6-C7. No severe osseous encroachment on the central canal. Neural foraminal stenosis at multiple levels greatest on the left at C5-C6 and C6-C7. Any soft tissue causes of stenosis would be better assessed with CT myelography or MRI. Thoracic spine: 1. No acute osseous abnormality. 2. Relatively mild degenerative changes without significant central canal or neural foraminal stenosis on this unenhanced CT. Lumbar spine: 1. No acute osseous abnormality. 2. Degenerative changes greatest at L5-S1. Moderate right and mild left osseous neural foraminal stenosis at this level. No significant central canal narrowing is identified. Electronically signed by: NASIR ANDRADE MD (05/22/2020 6:52 PM) [id number]
[2020-05-22 19:50] VITALS: BP_SYST 101; BP_SYST 109; BP_DIAS 63; BP_DIAS 81
--- NOTE | 2020-05-22 20:14 | PN ---
DATE: 05/22/2020 SUBJECTIVE: The patient is resting, slightly propped up in bed, in no apparent distress. He is definitely more awake, alert, responding it with more than yesterday. CT scan showed no evidence of any obstruction. His lab work actually is improving. His creatinine is down from 2.8-1.2 and BUN from 71-33. His magnesium continued to be low, so we will give him magnesium. He is on a banana bag and so far, he did not show any evidence of withdrawal or seizures. We will consult the physical therapy today to evaluate his mobility and continue with IV fluid and magnesium supplementation and hopefully once all that normalized, he can be discharged home tomorrow. PHYSICAL EXAMINATION: GENERAL: When I examined him, he looked well and was clearly in no apparent distress. No pallor, jaundice, cyanosis or thyromegaly. No jugular venous distention or limb edema. VITAL SIGNS: His heart rate was 80, blood pressure was 129/87, temperature was 98.4, respiratory rate was 13 and oxygen saturation was 98%. HEENT: Showed normocephalic, atraumatic. NECK: Supple. HEART: Showed normal first and second heart sounds. No gallop, rub or murmur. CHEST: Clear to auscultation. No crepitation or rhonchi. ABDOMEN: Slightly distended, soft, nontender. NEUROLOGIC: He is definitely more awake, alert. He moves his upper extremities to much good extent than lower extremities. He apparently is mostly wheelchair bound. His intake over the last 24 hours was 2050, output was 600. LABORATORY DATA: As of this morning, his serum sodium was 145, potassium 3.8, chloride 108, bicarbonate 23, anion gap of 14, BUN 33, creatinine 1.2, estimated GFR was 62 mL per minute, his glucose 158, calcium was 8.5, magnesium was 1.4. Total bilirubin, AST, ALT, alkaline phosphatase were normal. Total protein was 6.3, albumin was 2.9. His white cell count was 3300, hemoglobin 12.5, hematocrit 37.6, MCV 104 and platelet count of 84,000. His urinalysis was essentially unremarkable. ASSESSMENT: 1. Functional paraplegia without any clearcut examination. Apparently according to his , his drinking habit has worsened since she was fired from [facility] [employer] and has been wheelchair bound, unable to walk since November of this year. He did complain of dysphagia and odynophagia. Apparently, his intake was extremely poor. 2. Acute kidney injury, it is resolving. His creatinine is down from 2.8-1.2. 3. Hypomagnesemia, for which he received 2 grams of magnesium sulfate and started on magnesium oxide. PLAN: My plan is to continue with IV fluid, give him more magnesium IV and orally and consult physical and occupational therapy and decide on further management according to his response. NELLY LUA MD DR: LEE/salinas JOB#: [id number] / [id number]
[2020-05-23] VITALS: BP 135/86
--- NOTE | 2020-05-23 00:34 | CONS ---
DATE OF CONSULTATION: 05/22/2020 NEUROLOGY CONSULTATION REFERRING PHYSICIAN: Dr. Lynn REASON FOR CONSULTATION: Severe weakness of the lower extremities. HISTORY OF PRESENT ILLNESS: This is a 59-year-old right-handed male who was admitted through Emergency Room after he presented with a longstanding history of severe weakness of the lower extremities since 11/2019 to the point he became wheelchair bound. He denies any previous neck or back injuries or falls. The patient has been alcoholic throughout his life, but since November he has been drinking excessively. He also complains of loss of weight due to poor appetite secondary to pain inside the mouth. He denies headaches, visual disturbances, nausea, vomiting, chest pain, shortness of breath or palpitation, dysarthria. He has recently noticed urinary incontinence. Recent brain MRI revealed no abnormalities. The patient had skin cancer, which required surgery and pain of the right shoulder. Abdominal CT scan performed on the day of admission revealed hepatic steatosis and hepatic sludge with gallstones. Otherwise, there was no ischemia to the colon. PAST MEDICAL HISTORY: Significant for hypertension, alcoholism, skin cancer, required surgery 8 days prior to this admission. PAST SURGICAL HISTORY: Bladder repair and multiple skin cancer removal. FAMILY HISTORY: Father at age of 70 from stroke and mother at the age of 63 of unknown cause of . SOCIAL HISTORY: The patient is , has no children. He denies smoking or illegal drug use. He is a heavy alcohol drinker with recent worsening of heavy alcohol usage since November when he became wheelchair bound. REVIEW OF SYSTEMS: A 12-point review of system was performed and consistent with generalized weakness, more prominent on the lower extremities along with intermittent urinary incontinence. CURRENT HOME MEDICATIONS: Multivitamins, lorazepam 4 mg every 1 hour p.r.n. for alcohol withdrawal, Librium 100 mg p.o. at 50 mg every hours based on CIWA, Zofran 4 mg q. 8 hours p.r.n. intravenously for nausea and vomiting and Tylenol 650 mg q. 6 hours p.r.n. for pain and/or fever. ALLERGIES: SULFA DRUGS. PHYSICAL EXAMINATION: GENERAL: Well-developed, well-nourished male, not in acute distress. He weighs 68.1 kilos. VITAL SIGNS: Blood pressure is 110/67, respiratory rate 20, pulse is 67 and regular, temperature 98.7, oxygen saturation 99% on room air. HEENT: Normocephalic, atraumatic, otherwise unremarkable. NECK: Supple. Negative for carotid bruit, lymphadenopathy or thyromegaly. LUNGS: Clear to A and P. CARDIOVASCULAR: Regular rate and rhythm, normal S1, S2. There is no S3, S4 or murmurs. ABDOMEN: Soft. Bowel sounds positive. EXTREMITIES: Negative for cyanosis, clubbing or edema. NEUROLOGICAL: MENTAL STATUS: The patient is alert and oriented x 3. Speech is fluent. There is no language dysfunction. The patient recalls 2/3 immediately and 1/3 after 1 and 3 minutes. There are no language dysfunctions. He denies hallucination or delusion. CRANIAL NERVES: Visual guy are full. The pupils are reactive to light and accommodation. The extraocular movements are intact. There is no nystagmus. There is no facial motor or sensory deficit. Hearing is intact bilaterally. The palate is elevated symmetrically. Sternocleidomastoid muscles are powerful bilaterally. The patient shrugs his shoulders symmetrically, protrudes his tongue in the midline without fasciculation or atrophy. MOTOR EXAMINATION: No focal muscle bulk was seen. The tone is normal. The strength is 4/5 in the lower extremities and upper extremities. SENSORY EXAMINATION: Diminished pinprick and light touch senses in patchy distributions in both lower extremities. Deep tendon reflexes were symmetric and hypoactive with equivalent Babinski bilaterally. Gait not tested. LABORATORY DATA: CBC revealed white blood cells of 3.3 thousand, hemoglobin 12.5, hematocrit 37.6, and platelet count is 84,000. Chemistry revealed sodium 145, potassium 3.8, chloride 108, CO2 23, BUN 33, creatinine 1.2, glucose 158, calcium 8.5. Liver enzymes revealed elevated AST at 140 and normal ALT at 63. Ammonia level less than 10. Urinalysis negative for urinary leukocyte esterase, but urine showed 5-10 white blood cells. IMPRESSION: 1. Longstanding history of generalized weakness, more prominent in the lower extremities, which has worsened since November 2019, required wheelchair for ambulation. 2. Dysphagia and odynophagia. 3. Acute renal failure -- improved with IV fluid. 4. Longstanding history of alcoholism with heavy drinking. 5. Multiple skin cancers. RECOMMENDATIONS: 1. We will obtain CT scan of the cervical spine, thoracic spine and lumbosacral spine to rule out spinal cord injuries or lesions. 2. Continue with current management care initiated by Dr. Lynn along with [facility] protocol for alcohol withdrawal syndrome. 3. Further management depends on the result of CT scan. 4. Physical therapy evaluation. M Linda STOKES MD DR: PREM/salinas JOB#: [id number] / [id number]
[2020-05-23] MEDS: IV NORMAL SALINE 1,000ML 1,000 ML IV SCH (05:30)
--- NOTE | 2020-05-23 05:48 | NUR ---
Pt slept throughout much of the shift. One episode of incontinence at beginning of shift but pt has since called for assistance to use urinal x2. Pt A/Ox3, forgetful at times. Pt normally uses CPAP at home, placed on O2 at 2L via NC while sleeping.
[2020-05-23 06:03] VITALS: BP 128/74
[2020-05-23 07:00] LABS: CALCIUM 7.6 mg/dL (8.5-10.1); CREATININE 0.7 mg/dL (0.7-1.3); GFR 116.2; MAGNESIUM 1.3 mg/dL (1.8-2.4); POTASSIUM 3.4 mmol/L (3.5-5.1)
[2020-05-23] MEDS ORDERED: MAGNESIUM SULFATE 2GM 50 ML IV ONE (07:30)
[2020-05-23] MEDS ORDERED: POTASSIUM CHLORIDE 20 MEQ TABLET.ER. PO ONE (07:30)
[2020-05-23] MEDS: MVI, ADULT NO.4 WITH VIT K 10 ML, THIAMINE INJ 100 MG, FOLIC ACID INJ 1 MG in IV NORMAL... IV SCH ×4 (07:58)
[2020-05-23] MEDS ORDERED: LANSOPRAZOLE 30 MG PO SCH (09:00)
[2020-05-23] MEDS: METOPROLOL SUCC 24HR ER 50 MG TAB.ER.24H. PO SCH (09:00)
[2020-05-23] MEDS ORDERED: OMEPRAZOLE PO SCH (09:00)
[2020-05-23] MEDS: DOXYCYCLINE HYCLATE 100 MG TABLET PO SCH ×2 (09:35→20:32)
[2020-05-23] MEDS: ALLOPURINOL 300 MG TABLET. PO SCH (09:35)
--- NOTE | 2020-05-23 09:58 | PN ---
DATE: 05/23/2020 ATTENDING PHYSICIAN: Caroline Lynn MD CHIEF COMPLAINT: Weakness. SUBJECTIVE: The patient is alert. He ate some of his breakfast. He denied any new pain. He said he has been a wheelchair assist for the last 6 months. OBJECTIVE FINDINGS: VITAL SIGNS: Blood pressure today is 128/74 mmHg, oxygen saturation 99% on 2 liters of nasal cannula, temperature 97.8 degrees Fahrenheit, pulse is 78 and regular. HEENT: Head is without trauma. Pupils are reactive. Sclerae nonicteric. Oropharynx is clear. NECK: Supple, no bruits identified. LUNGS: Good breath sounds. CARDIOVASCULAR: Showed distant heart tones. No gallops. Peripheral pulses are palpable and full. ABDOMEN: Soft, scaphoid, nontender, no organomegaly. Bowel sounds are hypoactive. EXTREMITIES: Showed no cyanosis or edema. NEUROLOGIC: The patient remains bedridden. He is not ambulatory at this time. LABORATORY DATA: His creatinine is down to 0.7 mg/dL, BUN 16, sodium 147 mEq, potassium 3.4 mEq, hemoglobin yesterday was 12.5 g/dL with a white count of 3300. ASSESSMENT: 1. A 59-year-old gentleman with acute on chronic renal failure. 2. Dehydration, rehydrated. 3. Chronic alcoholism. 4. Alcoholic neuropathy and myopathy. 5. Generalized debilitation. 6. Underlying depression. 7. Essential hypertension. 8. History of recent skin cancer resected from the shoulder. 9. Bladder incontinence. PLAN: 1. Discontinue IV hydration as the electrolytes have normalized. 2. Rehab consult for strengthening. 3. Increase diet as tolerated. 4. Meds reviewed. POONAM FUENTES MD DR: DOMONIQUE/salinas JOB#: [id number] / [id number]
--- NOTE | 2020-05-23 11:31 | PN ---
DATE: SUBJECTIVE: The patient denies any new medical or neurological complaints. He continues to have weakness of the upper and lower extremities with intermittent numbness and paresthesia. OBJECTIVE: GENERAL: Well-developed, well-nourished male, not in acute distress. VITAL SIGNS: Blood pressure 128/74, respiratory rate 13, pulse is 78 and regular, oxygen saturation 99% on 2 liters by nasal cannula, and temperature 97.8. HEENT: Normocephalic and atraumatic, otherwise unremarkable. NECK: Supple. Negative for carotid bruit, lymphadenopathy or thyromegaly. LUNGS: Clear to A and P. CARDIOVASCULAR: Regular rate and rhythm, normal S1 and S2. There is no S3, S4 or murmur. ABDOMEN: Soft. Bowel sounds positive. EXTREMITIES: Negative for cyanosis, clubbing or edema. NEUROLOGICAL EXAM: Mental Status: The patient is alert and oriented x 3. Speech is fluent. There is no language dysfunction. Cranial nerves are intact. Motor examination: No focal muscle bulk wasting. The tone is normal. The strength is 4/5 in the upper and lower extremities. Sensory examination revealed diminished pinprick and light touch senses in patchy distributions in both upper and lower extremities. Deep tendon reflexes were symmetric and active without pathologic responses. Gait not tested; however, the physical therapy has been evaluated the patient, has been working with him. DIAGNOSTIC DATA: CT of the cervical spine with contrast revealed degenerative disk disease between C5-C6 and C6-C7. Thoracic spine CT with contrast revealed degenerative changes and lumbosacral spine CT with contrast revealed evidence of degenerative disk disease, more prominent at L5-S1. IMPRESSION: 1. Generalized weakness of the upper and lower extremities with intermittent numbness and paresthesia, rule out peripheral neuropathy versus radiculopathy. 2. Chronic alcohol abuse with current heavy drinker. 3. Renal failure - improved with hydration. 4. Dysphagia and odynophagia. RECOMMENDATIONS: 1. Continue with current management initiated by Dr. Lynn - Dr. Gómez regarding alcohol withdrawal protocol. 2. Physical therapy. 3. We will arrange for EMG/NCS of the upper and lower extremities, rule out peripheral neuropathy versus radiculopathy. M Linda STOKES MD DR: PREM/salinas JOB#: [id number] / [id number]
[2020-05-23 12:57] VITALS: BP 128/85
[2020-05-23] MEDS: chlordiazePOXIDE HCL 25 MG CAPSULE PO PRN (13:06)
[2020-05-23 15:15] VITALS: BP 130/87
--- NOTE | 2020-05-23 17:07 | NUR ---
Pt had a good day today. PT/OT got patient up to the chair earlier in the day. pt did walk from the bed to the chair x2 today with 2 person assist, gait belt, and walker. Tolerated well. pt is tired from walking today but has been eager to walk "the longer way" to the chair by going around the opposite side of the bed. pt has ate all meals today 75% or more. Pt stated "I am done drinking" when educated him on the importance of taking care of self and stop drinking. Pt was not incontinent today and was going into the urinal independently.
[2020-05-23] MEDS ORDERED: DOCU-109 PO (18:53)
[2020-05-23 19:20] VITALS: BP 126/86
[2020-05-23] MEDS: DOCUSATE SODIUM 100 MG CAPSULE PO SCH (20:32)
[2020-05-23 22:05] VITALS: BP 121/83
--- NOTE | 2020-05-24 05:10 | NUR ---
Pt A&Ox4, can be forgetful at times, seems withdrawn and quite but stated that "Its because Im tired...I got up twice today to the chair...wiped out." Pt slept throughout much of the night, normally wears CPAP at home, placed on O2 at 2L NC while sleeping. Pt independently ate HS snack. Pt did have 2 episode of incont. during shift but also used the urinal x3. Pt with nonblanchable red area to coccyx, Calmoseptine applied PRN.
[2020-05-24 05:50] VITALS: BP 143/92
[2020-05-24 09:00] VITALS: BP 145/89
[2020-05-24] MEDS ORDERED: FOLIC ACID 1 MG TABLET PO SCH (09:00)
[2020-05-24] MEDS ORDERED: THIAMINE 100 MG TABLET. PO SCH (09:00)
[2020-05-24] MEDS ORDERED: MULTIVITAMIN with MINERAL TABLET. PO SCH (09:00)
[2020-05-24] MEDS: METOPROLOL SUCC 24HR ER 50 MG TAB.ER.24H. PO SCH (09:32)
[2020-05-24] MEDS: ALLOPURINOL 300 MG TABLET. PO SCH (09:32)
[2020-05-24] MEDS: DOCUSATE SODIUM 100 MG CAPSULE PO SCH (09:32)
[2020-05-24] MEDS: DOXYCYCLINE HYCLATE 100 MG TABLET PO SCH (09:32)
--- NOTE | 2020-05-24 10:07 | PN ---
DATE: SUBJECTIVE: The patient denies any new medical or neurological complaints. He continues to have generalized weakness of the upper and lower extremities. OBJECTIVE: GENERAL: Well-developed, well-nourished male, not in acute distress. VITAL SIGNS: Blood pressure 143/92, respiratory rate 14, pulse is 86 and regular, oxygen saturation is 100% on 2 liters by nasal cannula and temperature is 97. HEENT: Normocephalic, atraumatic; otherwise, unremarkable. NECK: Supple. Negative for carotid bruit, lymphadenopathy or thyromegaly. LUNGS: Clear to A and P. CARDIOVASCULAR: Regular rate and rhythm. Normal S1, S2. There is no S3, S4 or murmurs. ABDOMEN: Soft. Bowel sounds positive. EXTREMITIES: Negative for cyanosis, clubbing or edema. NEUROLOGICAL EXAM: Mental Status: The patient is alert and oriented x 3. Speech is fluent. There is no language dysfunction, otherwise, unremarkable. Cranial nerves are intact. No focal motor or sensory deficit. The strength is 4/5 in the upper and lower extremities. Sensory examination revealed diminished pinprick and light touch senses in patchy distributions in both lower extremities. Deep tendon reflexes were symmetric and active without pathologic responses. Gait not tested. IMPRESSION: 1. Generalized weakness of the upper and lower extremities with intermittent numbness and paresthesia rule out peripheral neuropathy versus radiculopathy. 2. Chronic alcohol abuse with current heavy drinking. 3. Renal failure -- improved with hydration. 4. Dysphagia and odynophagia. RECOMMENDATIONS: 1. Continue with current management with alcohol withdrawal protocol. 2. Continue with physical therapy. 3. Follow up with Dr. Stokes on an outpatient basis after 1-week from discharge. M Linda STOKES MD DR: PREM/salinas JOB#: [id number] / [id number]
[2020-05-24 11:00] VITALS: BP 129/95
--- NOTE | 2020-05-24 11:00 | DS ---
DATE OF DISCHARGE: 05/24/2020 ATTENDING PHYSICIAN: Dr. Lynn. FINAL DISCHARGE DIAGNOSES: 1. Chronic alcoholism. 2. Dehydration, rehydrated. 3. Renal failure, resolved. 4. Alcoholic neuropathy. 5. Alcoholic myopathy. 6. Generalized debilitation. 7. Underlying depression. 8. Essential hypertension. 9. Recent skin cancer, right shoulder with resection. 10. Bladder incontinence. HISTORY AND PHYSICAL: This is a 59-year-old gentleman with multiple medical issues. He has not been able to ambulate for the last 6 months. He is a chronic alcoholic. He uses a wheelchair for assistance. He has had spinal neurologic workup in the past. PHYSICAL EXAMINATION: Please see the dictated note. PERTINENT LABORATORY AND X-RAY STUDIES: Admission hemoglobin was 12.8 g/dL with a white count of 4900, repeated was 12.5 g/dL. Creatinine on admission was 2.8 mg/dL in a dehydrated state with a BUN of 71 mg/dL, repeated the next day was down to 1.2 and 33 mg/dL respectively and prior to discharge, it was down to 16 and 0.7 mg/dL respectively. Sodium was 147, potassium 3.4 mEq, this will be followed up as an outpatient. COURSE IN THE HOSPITAL: The patient was admitted. He was started on gentle IV hydration. Diet was advanced. We continued most of his home meds. He did well. Serial chemistry showed an improvement in his dehydration and his renal failure resolved. By the fourth hospital day, his vital signs were stable. Blood pressure was 140/92 mmHg, temperature 97.0 degrees Fahrenheit, pulse was regular, oxygen saturation 100% on room air. He was still weak, using his wheelchair, physical therapy and occupational therapy recommendations on the chart. I recommended rehab, he declined, he wanted to go home. He has outpatient home health services, which is not the same as acute rehab. In any event, he was discharged home, per his request. He was totally sober, he had no impending withdrawal signs. He was discharged home then with continuation of his med list including allopurinol, docusate, finish the round of doxycycline, metoprolol and the Prilosec, dose is unchanged. Dr. Shields saw him in consultation and recommended an outpatient followup in 1 week's time. Strong encouragement to avoid further alcohol use. Whether or not he will quit drinking remains to be seen. The patient was then discharged from our hospital in stable condition with explicit instructions and followup care. POONAM FUENTES MD DR: DOMONIQUE/salinas JOB#: [id number] / [id number]
--- NOTE | 2020-05-24 11:31 | NUR ---
1115 Pt brother Jorge Alberto called expressing concern. Brother says when pt is home and drinks alcohol he has a loaded gun in his possession, and threatens if she doesn't get him alcohol. This information relayed to Dr. Gómez, he has deemed pt not suicidal. Report will be made by social work to [employer]PS regarding wifes safety. Discharge as planned.
--- NOTE | 2020-05-24 13:04 | NUR ---
Discharged pt with via wheelchair. Reviewed all home meds to resume, home health and follow up date/time and place with [facility] for outpt EMG. Pt A/Ox4, vital signs stable. All questions answered.
[2020-05-24 22:07] LABS: ANA INTERP Negative (.)
== END 2020-05-24 13:00 | disposition home health service (06) | DRG 74 ==
LOC: ER 10:46 → 1 SOUTH 13:30 → ICU 15:14
PROVIDERS: ADMIT Internal Medicine; ATTEND Internal Medicine
DX: G62.1 Alcoholic polyneuropathy (principal); G72.1 Alcoholic myopathy; N17.9 Acute kidney failure, unspecified; C44.90 Unspecified malignant neoplasm of skin, unspecified; E83.42 Hypomagnesemia; E86.0 Dehydration; F10.20 Alcohol dependence, uncomplicated; F32.9 Major depressive disorder, single episode, unspecified; F44.4 Conversion disorder with motor symptom or deficit; I12.9 Hypertensive chronic kidney disease with stage 1 through stage 4 chronic kidney disease, or unspecified chronic kidney disease; K76.0 Fatty (change of) liver, not elsewhere classified; K80.20 Calculus of gallbladder without cholecystitis without obstruction; N18.9 Chronic kidney disease, unspecified; R13.10 Dysphagia, unspecified; R32 Unspecified urinary incontinence; Z82.3 Family history of stroke; Z85.828 Personal history of other malignant neoplasm of skin; Z99.3 Dependence on wheelchair; Z79.899 Other long term (current) drug therapy; Z88.2 Allergy status to sulfonamides
CPT/HCPCS: 36415; 72125; 72128; 72131; 74176; 80048; 80053; 81001; 82140; 83735; 85025; 85610; 86038; 87086; 96361; 96365; 96366; 96375; J2060; J3475; 97110; 97116; 97530; 97535; 99285-25; J7030

== ENCOUNTER 2020-07-17 17:30 | Emergency (ER) | payer OTHER ==
[~2020-07-17] VITALS: Ht 165.1 cm; Wt 61.0 kg
[~2020-07-17 17:30] MED LIST changes: +DOCU-109 PO; +DOXY100C2 PO
--- NOTE | 2020-07-17 17:51 | PHYS DOC ---
Past History Past Medical History: Alcoholism, Cancer, Hypertension, Pancreatitis Past Medical History Limited secondary to ETOH intoxication (YASH RODRIGUEZ DO) Past Surgical History: Other Additional Past Surgical Histo: BLADDER REPAIR S/P FALL; MULTIPLE SKIN CANCER REOVED Past Surgical History Limited secondary to ETOH intoxication (YASH RODRIGUEZ DO) Smoking: Non-smoker Alcohol Use: Heavy Drug Use: None Social History Limited secondary to ETOH intoxication (YASH RODRIGUEZ DO) General Adult EDM: Chief Complaint: SUICIDAL IDEATION HPI: HPI: Patient is a 59-year-old male brought to the emergency department via EMS for alcohol intoxication and reported suicidal ideation. He denies current suicidal ideation, and drug use. He is very intoxicated during interview, and became extremely frustrated when asked about drug use. He is currently complaining of chronic low back pain, but denies any recent trauma or fall. History of present illness limited secondary to ETOH intoxication (YASH RODRIGUEZ DO) Review of Systems: Review of Systems: Constitutional: Denies fever or chills Musculoskeletal: Reports back pain Psychiatric: Hx of alleged suicidal ideation which patient currently denies Review of systems limited secondary to ETOH intoxication (YASH RODRIGUEZ DO) Allergies: Allergies: Allergies Coded Allergies Type Severity Reaction Last Updated Verified Sulfa (Sulfonamide Antibiotics) Allergy Intermediate 05/21/20 Yes (YASH RODRIGUEZ DO) Physical Exam: PE: Constitutional: Well developed, well nourished, agitated HENT: Normocephalic, atraumatic Eyes: PERRL, conjunctiva normal, no discharge, horizontal nystagmus Neck: Normal range of motion, no tenderness, supple Lungs & Thorax: No respiratory distress, equal chest rise and fall Abdomen: Soft, no tenderness Skin: Warm, dry, no erythema, no rash Back: No midline tenderness, no CVA tenderness, tight lumbar paraspinal muscles bilaterally Extremities: No tenderness, ROM intact, no edema Neurologic: Alert and oriented X 3, no focal deficits noted Psychologic: Affect agitated, denies suicidal ideation at this time (YASH RODRIGUEZ DO) EKG: EKG: [] (YASH RODRIGUEZ DO) Radiology/Procedures: Radiology/Procedures: [] (YASH RODRIGUEZ DO) Course & Med Decision Making: Course & Med Decision Making Pertinent Lab studies reviewed. (See chart for details) Patient was brought to the emergency department via EMS for alcohol intoxication and reported suicidal ideation. In the ED he declines suicidal ideation, but he is very intoxicated. Plan is to observe until sober. Labs obtained and pending. Banana bag initiated. 1800- Sign out provided to Dr. Pratt for further evaluation and final disposition. Discussed current findings and plan with patient, who acknowledges understanding and agreement. (YASH RODRIGUEZ DO) Course & Med Decision Making Assumed care at shift change. Patient cooperative and clinically sober. Patient stating he is not suicidal or like to go home. Nurse discussed with who states she feels comfortable taking up and agrees to take him to the [facility] tomorrow for further treatment. (NIKI PRATT MD) Dragon Disclaimer: Dragon Disclaimer: This electronic medical record was generated, in whole or in part, using a voice recognition dictation system. (YASH RODRIGUEZ DO) Departure Departure: Impression: Primary Impression: Alcohol intoxication Qualified Codes: F10.929 - Alcohol use, unspecified with intoxication, unspecified Disposition: 01 DC HOME SELF CARE/HOMELESS Condition: STABLE Referrals: EDILIA SANDOVAL (PCP) Patient Instructions: Alcohol Problems YASH RODRIGUEZ DO Jul 17, 2020 17:51 NIKI PRATT MD Jul 17, 2020 22:06
[2020-07-17] MEDS ORDERED: MVI, ADULT NO.4 WITH VIT K 10 ML, FOLIC ACID INJ 1 MG, THIAMINE INJ 100 MG in IV NORMAL... IV ONE (18:30)
[2020-07-17 18:46] LABS: BASO # 0.1 x10^3/uL (0.0-0.2); BASO % 1 % (0-3); EOS # 0.2 x10^3/uL (0.0-0.7); EOS % 3 % (0-3); HEMOGLOBIN 13.6 g/dL (13.0-17.5); LYMPH # 2.2 x10^3/uL (1.0-4.8); LYMPH % 36 % (24-48); MEAN CORPUSCULAR HEMOGLOBIN 34 pg (25-35); MEAN CORPUSCULAR HGB CONC 33 g/dL (31-37); MEAN CORPUSCULAR VOLUME 103 fL (79-100); MONO # 0.4 x10^3/uL (0.0-1.1); MONO % 7 % (0-9); NEUT # 3.2 x10^3uL (1.8-7.7); NEUT % 53 % (31-73); PLATELET COUNT 107 x10^3/uL (140-400); RED BLOOD COUNT 3.99 x10^6/uL (4.30-5.70)
[2020-07-17 18:57] LABS: CALCIUM 8.9 mg/dL (8.5-10.1); CREATININE 0.8 mg/dL (0.7-1.3); GFR 99.6; POTASSIUM 3.6 mmol/L (3.5-5.1)
[2020-07-17 19:03] LABS: ALBUMIN 3.2 g/dL (3.4-5.0); ALBUMIN/GLOBULIN RATIO 0.9 (1.0-1.7); MAGNESIUM 1.4 mg/dL (1.8-2.4); TOTAL PROTEIN 6.9 g/dL (6.4-8.2)
[2020-07-17 19:08] LABS: ACETAMIN < 2.0 mcg/mL (10-30)
[2020-07-17 19:09] LABS: ETHANOL 361 mg/dL (0-10); SALIC 0.8 mg/dL (2.8-20.0)
[2020-07-17 21:28] VITALS: BP 141/82
[2020-07-17 22:38] LABS: BARBITURATES NEG (NEG); BENZODIAZEPINES NEG (NEG); CANNABINOIDS NEG (NEG); COCAINE NEG (NEG); METHADONE NEG (NEG); OPIATES NEG (NEG); PHENCYCLIDINE NEG (NEG)
[2020-07-17 22:51] LABS: AMPHETAMINE/METHAMPHETAMINE NEG (NEG)
== END 2020-07-17 22:09 | disposition home or self-care (01) ==
LOC: ER 17:30
DX: F10.229 Alcohol dependence with intoxication, unspecified (principal); R45.851 Suicidal ideations; I10 Essential (primary) hypertension; Z88.2 Allergy status to sulfonamides; Y90.8 Blood alcohol level of 240 mg/100 ml or more
CPT/HCPCS: 36415; 80053; 80307; 80329; 83735; 85025; 96365; 99285; G0480; J7030

== ENCOUNTER 2020-08-12 11:14 | Inpatient (IN) | payer OTHER ==
[~2020-08-12] VITALS: Ht 165.1 cm; Wt 61.4 kg
[2020-08-12 12:21] LABS: ALBUMIN 3.3 g/dL (3.4-5.0); ALBUMIN/GLOBULIN RATIO 0.9 (1.0-1.7); ALK PHOS 189 U/L (46-116); ALT (SGPT) 35 U/L (16-63); AST (SGOT) 114 U/L (15-37); BLOOD UREA NITROGEN 19 mg/dL (8-26); BUN/CREATININE RATIO 11 (6-20); CALCIUM 8.7 mg/dL (8.5-10.1); CHLORIDE 96 mmol/L (98-107); CREATININE 1.7 mg/dL (0.7-1.3); GFR 41.8; GLUCOSE 98 mg/dL (70-99); POTASSIUM 5.6 mmol/L (3.5-5.1); SODIUM 142 mmol/L (136-145); TOTAL BILIRUBIN 1.2 mg/dL (0.2-1.0); TOTAL PROTEIN 6.9 g/dL (6.4-8.2)
[2020-08-12 12:23] LABS: BASO # 0.1 x10^3/uL (0.0-0.2); BASO % 1 % (0-3); EOS % 0 % (0-3); HEMATOCRIT 40.2 % (39.0-53.0); HEMOGLOBIN 12.2 g/dL (13.0-17.5); LYMPH # 1.3 x10^3/uL (1.0-4.8); LYMPH % 14 % (24-48); MEAN CORPUSCULAR HEMOGLOBIN 34 pg (25-35); MEAN CORPUSCULAR HGB CONC 30 g/dL (31-37); MEAN CORPUSCULAR VOLUME 112 fL (79-100); MONO # 0.5 x10^3/uL (0.0-1.1); MONO % 5 % (0-9); NEUT # 7.6 x10^3uL (1.8-7.7); NEUT % 80 % (31-73); PLATELET COUNT 77 x10^3/uL (140-400); RED BLOOD COUNT 3.61 x10^6/uL (4.30-5.70); RED CELL DISTRIBUTION WIDTH 14.6 % (11.5-14.5); WHITE BLOOD COUNT 9.5 x10^3/uL (4.0-11.0)
[2020-08-12 12:25] LABS: ANION GAP 41 (6-14)
[2020-08-12 12:26] LABS: CARBON DIOXIDE < 5 mmol/L (21-32)
--- NOTE | 2020-08-12 12:31 | RAD ---
EXAM: AP View of the chest DATE: 08/12/2020 12:01 PM INDICATION: Reason: SOB / Spl. Instructions: / History: COMPARISON: 09/23/2015, 03/26/2014 FINDINGS: The heart is not enlarged. Mediastinal and hilar contours are normal. Subtle patchy opacities peripheral right lower lung. No pleural effusion or pneumothorax. IMPRESSION: Subtle patchy opacities in the peripheral right lower lung, may be seen with developing infiltrate. Imaging follow-up to resolution is recommended. Electronically signed by: Valentino Hector MD (08/12/2020 12:29 PM) HANSEL
[2020-08-12] MEDS ORDERED: ONDANSETRON PF 4 MG/2 ML VIAL. IVP ONE (12:45)
[2020-08-12] MEDS ORDERED: IV NORMAL SALINE 1,000ML 1,000 ML IV ONE ×2 (12:45→21:30)
--- NOTE | 2020-08-12 12:46 | PHYS DOC ---
Past History Past Medical History: Alcoholism, Cancer, Hypertension, Pancreatitis Additional Past Medical Histor: alcohol abuse (DENILSON COLEMAN DO) Past Surgical History: Other Additional Past Surgical Histo: BLADDER REPAIR S/P FALL; MULTIPLE SKIN CANCER REOVED (DENILSON COLEMAN DO) Smoking: Non-smoker Alcohol Use: Heavy Drug Use: None (DENILSON COLEMAN DO) General Adult EDM: Chief Complaint: SHORTNESS OF BREATH HPI: HPI: 59-year-old male presents via EMS with shortness of breath. The patient started feeling short of breath earlier today. He denies chest pain or diaphoresis. He has had some nausea. He is just generally not feeling well. The patient is usually a daily whiskey drinker. He states only drinking 2 glasses. He has not drank any alcohol for the last 4 days. He denies any known COVID-19 exposures. He has been staying at home. (DENILSON COLEMAN DO) Review of Systems: Review of Systems: Constitutional: Denies fever or chills Eyes: Denies change in visual acuity HENT: Denies nasal congestion or sore throat Respiratory: shortness of breath Cardiovascular: Denies chest pain or edema GI: Nausea. Denies abdominal pain, vomiting, bloody stools or diarrhea : Denies dysuria Musculoskeletal: Denies back pain or joint pain Integument: Denies rash Neurologic: Denies headache, focal weakness or sensory changes Endocrine: Denies polyuria or polydipsia Lymphatic: Denies swollen glands Psychiatric: Denies depression or anxiety (DENILSON COLEMAN DO) Allergies: Allergies: Allergies Coded Allergies Type Severity Reaction Last Updated Verified Sulfa (Sulfonamide Antibiotics) Allergy Intermediate 05/21/20 Yes (DENILSON COLEMAN DO) Physical Exam: PE: Constitutional: Well developed, well nourished, no acute distress, non-toxic appearance. [] HENT: Normocephalic, atraumatic, bilateral external ears normal, oropharynx moist, no oral exudates, nose normal. [] Eyes: PERRLA, EOMI, conjunctiva normal, no discharge. [] Neck: Normal range of motion, no tenderness, supple, no stridor. [] Cardiovascular:Heart rate 119, regular rhythm, no murmur [] Lungs & Thorax: Bilateral breath sounds clear to auscultation [] Abdomen: Bowel sounds normal, soft, no tenderness, no masses, no pulsatile masses. [] Skin: Warm, dry, no erythema, no rash. [] Back: No tenderness, no CVA tenderness. [] Extremities: No tenderness, no cyanosis, no clubbing, ROM intact, no edema. [] Neurologic: Alert and oriented X 3, normal motor function, normal sensory function, no focal deficits noted. [] Psychologic: Affect normal, judgement normal, mood normal. [] (DENILSON COLEMAN DO) Current Patient Data: Labs: Laboratory Tests Test 08/12/20 11:30 White Blood Count 9.5 x10^3/uL (4.0-11.0) Red Blood Count 3.61 x10^6/uL (4.30-5.70) L Hemoglobin 12.2 g/dL (13.0-17.5) L Hematocrit 40.2 % (39.0-53.0) Mean Corpuscular Volume 112 fL (79-100) H Mean Corpuscular Hemoglobin 34 pg (25-35) Mean Corpuscular Hemoglobin Concent 30 g/dL (31-37) L Red Cell Distribution Width 14.6 % (11.5-14.5) H Platelet Count 77 x10^3/uL (140-400) L Neutrophils (%) (Auto) 80 % (31-73) H Lymphocytes (%) (Auto) 14 % (24-48) L Monocytes (%) (Auto) 5 % (0-9) Eosinophils (%) (Auto) 0 % (0-3) Basophils (%) (Auto) 1 % (0-3) Neutrophils # (Auto) 7.6 x10^3uL (1.8-7.7) Lymphocytes # (Auto) 1.3 x10^3/uL (1.0-4.8) Monocytes # (Auto) 0.5 x10^3/uL (0.0-1.1) Eosinophils # (Auto) 0.0 x10^3/uL (0.0-0.7) Basophils # (Auto) 0.1 x10^3/uL (0.0-0.2) Platelet Estimate Pending Sodium Level 142 mmol/L (136-145) Potassium Level 5.6 mmol/L (3.5-5.1) H Chloride Level 96 mmol/L (98-107) L Carbon Dioxide Level < 5 mmol/L (21-32) *L Anion Gap 41 (6-14) H Blood Urea Nitrogen 19 mg/dL (8-26) Creatinine 1.7 mg/dL (0.7-1.3) H Estimated GFR (Cockcroft-Gault) 41.8 BUN/Creatinine Ratio 11 (6-20) Glucose Level 98 mg/dL (70-99) Calcium Level 8.7 mg/dL (8.5-10.1) Total Bilirubin 1.2 mg/dL (0.2-1.0) H Aspartate Amino Transferase (AST) 114 U/L (15-37) H Alanine Aminotransferase (ALT) 35 U/L (16-63) Alkaline Phosphatase 189 U/L (46-116) H Troponin I Quantitative < 0.017 ng/mL (0-0.055) Total Protein 6.9 g/dL (6.4-8.2) Albumin 3.3 g/dL (3.4-5.0) L Albumin/Globulin Ratio 0.9 (1.0-1.7) L Vital Signs: Vital Signs Date Time Temp Pulse Resp B/P (MAP) Pulse Ox O2 Delivery O2 Flow Rate FiO2 08/12/20 11:16 97.5 122 24 138/73 (94) 100 Room Air (DENILSON COLEMAN DO) EKG: EKG: Sinus tachycardia, rate 119, normal axis, no ST elevations or depressions. [] (DENILSON COLEMAN DO) Radiology/Procedures: Radiology/Procedures: [] Impressions: EXAM: AP View of the chest DATE: 08/12/2020 12:01 PM INDICATION: Reason: SOB / Spl. Instructions: / History: COMPARISON: 09/23/2015, 03/26/2014 FINDINGS: The heart is not enlarged. Mediastinal and hilar contours are normal. Subtle patchy opacities peripheral right lower lung. No pleural effusion or pneumothorax. IMPRESSION: Subtle patchy opacities in the peripheral right lower lung, may be seen with developing infiltrate. Imaging follow-up to resolution is recommended. Electronically signed by: Valentino Monson MD (08/12/2020 12:29 PM) [facility] DICTATED AND SIGNED BY: VALENTINO MONSON MD DATE: 08/12/20 1227 CC: DENILSON COLEMAN DO; EDILIA SANDOVAL ~ (DENILSON COLEMAN DO) Heart Score: Risk Factors: Risk Factors: DM, Current or recent (<one month) smoker, HTN, HLP, family history of CAD, obesity. Risk Scores: Score 0 - 3: 2.5% MACE over next 6 weeks - Discharge Home Score 4 - 6: 20.3% MACE over next 6 weeks - Admit for Clinical Observation Score 7 - 10: 72.7% MACE over next 6 weeks - Early Invasive Strategies (DENILSON COLEMAN DO) Course & Med Decision Making: Course & Med Decision Making Pertinent Labs and Imaging studies reviewed. (See chart for details) The patient vomited during my interview. I have ordered him Zofran. His chest x-ray shows possible subtle patchy opacities in the right lower lung which could be infiltrate. Patient did not have a fever on arrival. The patient's labs are significant for an elevated creatinine, BUN, potassium 5.6, lactic acid of 10.2. The patient is awake and alert so we will repeat the lactic acid for confirmation. I have ordered a second liter of normal saline. The repeat lactic acid is still 7.8. The patient's creatinine is 1.7. This makes it difficult to do a CT angio without some prehydration. I will cover him with Zosyn in case this is a developing infection. I spoke with Dr. Lynn about the patient he has accepted him for transfer to [facility]. I will also cover the patient with Lovenox prior to transfer. The patient's urinalysis is negative for infection. [facility] does not have any beds available. We will have told the patient in the emergency room at this time. The patient is still being held in the emergency room. I have provided signout to Dr. Garcias. 47 minutes of critical care time was spent on the patient exclusive of other billable procedures. [] (DENILSON COLEMAN DO) Course & Med Decision Making See Dr. Coleman chart for details. Pt. to Transfer to [facility]- no current beds available at shift change. Still no beds at [facility]. Reportedly will have beds at [place] after shift change. Plan possible admit [place].. Pt. endorse to Dr. Gottlieb at shift change 0600 (GEM GARCIAS MD) Course & Med Decision Making Patient remained under my care during my ER shift during 08/13/2020 without any remarkable events Was subsequently transported to [facility] via EMS for continued medical care in stable condition (JONELLE GOTTLIEB DO) Lori Disclaimer: Lori Disclaimer: This electronic medical record was generated, in whole or in part, using a voice recognition dictation system. (DENILSON COLEMAN DO) Departure Departure: Impression: Primary Impression: Shortness of breath Additional Impressions: Lactic acidosis Elevated serum creatinine Disposition: ADMITTED INPT THIS HOSP ([facility]) Admitting Physician: Caroline Lynn (DENILSON COLEMAN DO) Admitting Physician: Caroline Lynn (JONELLE GOTTLIEB DO) Condition: STABLE Referrals: EDILIA SANDOVAL (PCP) DENILSON COLEMAN DO Aug 12, 2020 12:46 GEM GARCIAS MD Aug 12, 2020 19:30 JONELLE GOTTLIEB DO Aug 14, 2020 07:14
--- NOTE | 2020-08-12 12:53 | EKG ---
[address] [address] Test Date: 2020-08-12 Test Time: 12:19:58 Pat Name: NAVI WHITE Department: Room: Gender: M Direct Mail Manager: : 1960 Requested By: DENILSON COLEMAN Order Number: [id number] Reading MD: Measurements Intervals [place] Rate: 119 P: 69 MI: 138 QRS: 28 QRSD: 72 T: 19 QT: 332 QTc: 468 Interpretive Statements SINUS TACHYCARDIA OTHERWISE NORMAL ECG RI6.02 No previous ECG available for comparison
[2020-08-12] MEDS ORDERED: PIPERACILLIN/TAZOBACTAM 3.375 GM in IV NORMAL SALINE 50ML 50 ML IV ONE (14:00)
[2020-08-12 14:05] LABS: % BANDS 9 % (0-9); % BASOS 1 % (0-3); % LYMPHS 16 % (24-48); % METAS 3 % (0-0); % MONOS 2 % (0-10); % SEGS 69 % (35-66)
[2020-08-12 14:06] LABS: PLT ESTIMATE DECREASED (ADEQUATE)
[2020-08-12] MEDS: NORMAL SALINE IV SCH ×2 (14:15→15:15)
[2020-08-12] MEDS ORDERED: IV NORMAL SALINE 50ML 50 ML ONE (14:17)
[2020-08-12] MEDS ORDERED: PIPERACILLIN/TAZOBACTAM 3.375 GM VIAL IV ONE (14:17)
[2020-08-12] MEDS ORDERED: ENOXAPARIN ** NOTE DOSE ** SYRINGE SQ ONE (15:00)
[2020-08-12 15:12] LABS: BARBITURATES NEG (NEG); BENZODIAZEPINES NEG (NEG); CANNABINOIDS NEG (NEG); COCAINE NEG (NEG); METHADONE NEG (NEG); OPIATES NEG (NEG); PHENCYCLIDINE NEG (NEG)
[2020-08-12 15:16] LABS: AMPHETAMINE/METHAMPHETAMINE NEG (NEG)
[2020-08-12 15:26] LABS: BILIRUBIN,URINE NEG (NEG); CLARITY,URINE CLOUDY; COLOR,URINE YELLOW; GLUCOSE,URINE NEG (NEG)
[2020-08-12 15:27] LABS: BACTERIA,URINE MOD /HPF (0-FEW); GRANULAR CASTS,URINE FEW /HPF; NITRITE,URINE NEG (NEG); RBC,URINE 0 /HPF (0-2); SQUAMOUS EPITHELIAL CELL,UR FEW /LPF
[2020-08-12 17:52] LABS: CALCIUM 6.7 mg/dL (8.5-10.1); CREATININE 1.7 mg/dL (0.7-1.3); GFR 41.8
--- NOTE | 2020-08-12 20:50 | EKG ---
[facility] ED [facility] [address] [place] [id number] Test Date: 2020-08-12 Test Time: 19:54:44 Pat Name: NAVI WHITE Department: Room: Gender: M Research Administrator: : 1960 Requested By: GEM FOSTER Order Number: [id number] Reading MD: Measurements Intervals [place] Rate: 126 P: 27 [place]: 126 QRS: 34 QRSD: 66 T: 15 QT: 306 QTc: 443 Interpretive Statements SINUS TACHYCARDIA LOW LIMB LEAD VOLTAGE NO SPECIFIC ECG ABNORMALITIES RI6.02 No previous ECG available for comparison
[2020-08-12 22:40] LABS: BASO % 0 % (0-3); EOS % 0 % (0-3); HEMATOCRIT 31.1 % (39.0-53.0); HEMOGLOBIN 10.1 g/dL (13.0-17.5); LYMPH # 0.3 x10^3/uL (1.0-4.8); LYMPH % 6 % (24-48); MEAN CORPUSCULAR HEMOGLOBIN 34 pg (25-35); MEAN CORPUSCULAR HGB CONC 32 g/dL (31-37); MEAN CORPUSCULAR VOLUME 106 fL (79-100); MONO # 0.3 x10^3/uL (0.0-1.1); MONO % 7 % (0-9); NEUT # 4.4 x10^3uL (1.8-7.7); NEUT % 88 % (31-73); PLATELET COUNT 43 x10^3/uL (140-400); RED BLOOD COUNT 2.93 x10^6/uL (4.30-5.70); RED CELL DISTRIBUTION WIDTH 14.1 % (11.5-14.5)
[2020-08-12 22:56] LABS: CALCIUM 6.5 mg/dL (8.5-10.1); GFR 34.6; POTASSIUM 5.1 mmol/L (3.5-5.1)
[2020-08-13] MEDS ORDERED: ALBUTEROL SULFATE 8GM INHALER. INH ONE (02:45)
[2020-08-13 15:02] VITALS: BP 120/81
[2020-08-13] MEDS ORDERED: DEXTROSE 50% 25 GM / 50ML DISP.SYRIN. IV PRN (15:15)
--- NOTE | 2020-08-13 15:23 | HP ---
ADMIT DATE: 08/13/2020 HISTORY OF PRESENT ILLNESS: The patient is a 59-year-old male patient who came to the Emergency Room complaining of shortness of breath. The patient started feeling short of breath yesterday early in the morning. He denied any chest pain or diaphoresis. He has had some nausea and he is just not feeling well. The patient is usually daily whiskey drinker. He states only drinking 2 glasses. He has not drank any alcohol for the last 4 days. He denied any known COVID-19 exposure. He has been staying at home. He was extensively investigated in the Emergency Room. His initial evaluation showed that he has severe high anion gap acidosis, hyperkalemia and acute kidney injury as his blood sugar was high also and has lactic acidosis, although his white cell count, hemoglobin, hematocrit were normal and has low platelets. He apparently was treated with IV fluid, started on Lovenox and albuterol sulfate, received also a liter of normal saline. His chest x-ray showed probably has right lower lobe infiltrate. Unfortunately, he was on hold at Emergency Room as there are no beds here in [facility] nor there are any beds in [facility]. PAST MEDICAL HISTORY: Significant for hypertension, chronic kidney disease. He also has weight loss that is unintentional. PAST SURGICAL HISTORY: Right rotator cuff surgery and had a bladder repair as he fell. He has also multiple skin cancer removed. ALLERGIES: He is allergic to SULFA DRUGS. MEDICATIONS: He is currently on following medications: He was on doxycycline 100 mg twice a day, metoprolol tartrate 100 mg once a day, Colace 100 mg twice a day, omeprazole 20 mg twice a day, allopurinol 300 mg daily. FAMILY HISTORY: He has one brother, older and healthy; one sister, younger and healthy. His father at the age of 70 because of myocardial infarction and mother with metastatic cancer at the age of 62. SOCIAL HISTORY: He is , lives with his . He has multiple stepchildren, none of his own. He never smoked. He drinks a pint a day, quit about 4 days ago. He is retired, feeling better, for the last 30 years. PHYSICAL EXAMINATION: GENERAL: On arrival to the Emergency Room, he looked well and was clearly in no apparent respiratory distress. No pallor, jaundice, cyanosis or thyromegaly. No jugular venous distention or limb edema. VITAL SIGNS: His heart rate on arrival was 122, blood pressure was 138/73, temperature was 97.5, respiratory rate was 24, and oxygen saturation 100% on room air. HEAD, EYES, EARS, NOSE AND THROAT: Showed normocephalic, atraumatic. NECK: Supple. HEART: Normal first and second heart sounds. No gallop, rub or murmur. CHEST: Clear to auscultation. No crepitation or rhonchi. ABDOMEN: Distended, soft, nontender. NEUROLOGIC: He was awake, alert, responding appropriately. All cranial nerves are intact. He moves upper extremities to much good extent than lower extremities, apparently he is mostly bedbound, chair bound. LABORATORY DATA: His lab work on arrival showed a white cell count 9500, hemoglobin 12, hematocrit 40, MCV 112 and platelet count of 77,000. His chemistry showed a serum sodium 142, potassium 5.6, chloride 96, bicarbonate 5, anion gap of 141, BUN of 19, creatinine 1.7 and estimated GFR was 41 mL per minute. His glucose was 98, lactic acid was 10.2, calcium was 8.7. Total bilirubin, AST, alkaline phosphatase are elevated. ALT was normal. His total protein 6.9, albumin was 3.3. Urinalysis showed the urine was yellow, cloudy with a pH of 5, specific gravity of 1.030. There is small amount of protein, negative for glucose, trace of ketones, negative for blood and nitrite, negative for leukocyte esterase, 0 rbc's, 1-4 wbc's, and moderate amount of bacteria. Urine drug screen was positive for alcohol, negative for all other drugs. His chest x-ray showed the patient has subtle patchy opacities in the peripheral right lower lobe, may be seen with developing infiltrate. Imaging followup to resolution is recommended. ASSESSMENT AND PLAN: The patient was basically admitted with severe lactic acidosis and acute kidney injury. His anion gap was 41, BUN of 19, creatinine 1.7. He has also right lower lobe infiltrate. He was probably hyperventilating because of the severe acidosis. He has received IV fluid and his heart rate and blood pressure have improved. Plan is to obviously continue with the correction of acidosis and also start him on IV antibiotic for healthcare-associated pneumonia. NELLY LUA MD DR: Nancy JOB#: [id number] / [id number]
[2020-08-13 15:37] LABS: HEMATOCRIT 30.1 % (39.0-53.0); HEMOGLOBIN 10.1 g/dL (13.0-17.5); RED BLOOD COUNT 2.92 x10^6/uL (4.30-5.70); RED CELL DISTRIBUTION WIDTH 14.2 % (11.5-14.5); WHITE BLOOD COUNT 4.5 x10^3/uL (4.0-11.0)
[2020-08-13 15:45] LABS: CREATININE 1.4 mg/dL (0.7-1.3); GFR 52.2; POTASSIUM 3.3 mmol/L (3.5-5.1)
[2020-08-13 15:50] LABS: ALBUMIN 2.4 g/dL (3.4-5.0); ALBUMIN/GLOBULIN RATIO 0.8 (1.0-1.7); TOTAL BILIRUBIN 1.1 mg/dL (0.2-1.0); TOTAL PROTEIN 5.5 g/dL (6.4-8.2)
[2020-08-13] MEDS: INSULIN LISPRO 300 UNITS/3 ML VIAL. SQ SCH (17:00)
[2020-08-13] MEDS ORDERED: ONDANSETRON PF 4 MG/2 ML VIAL. IVP PRN (17:15)
[2020-08-13] MEDS: POTASSIUM CL 20MEQ D5-0.2%NACL 1,000 ML IV SCH (17:47)
[2020-08-13 18:50] VITALS: BP 126/83
[2020-08-13] MEDS: DOCUSATE SODIUM 100 MG CAPSULE PO SCH (21:00)
[2020-08-13] MEDS: PIPERACILLIN/TAZOBACTAM 2.25 GM in IV NORMAL SALINE 50ML 50 ML IV SCH (21:01)
[2020-08-13 23:14] VITALS: BP 126/88
[2020-08-14] MEDS: POTASSIUM CL 20MEQ D5-0.2%NACL 1,000 ML IV SCH ×2 (02:41→12:00)
[2020-08-14] MEDS: PIPERACILLIN/TAZOBACTAM 2.25 GM in IV NORMAL SALINE 50ML 50 ML IV SCH ×3 (05:54→21:46)
[2020-08-14 06:51] VITALS: BP 136/86
[2020-08-14] MEDS: INSULIN LISPRO 300 UNITS/3 ML VIAL. SQ SCH ×3 (08:00→16:30)
[2020-08-14] MEDS: DOCUSATE SODIUM 100 MG CAPSULE PO SCH ×2 (08:15→20:52)
[2020-08-14] MEDS: PANTOPRAZOLE 40 MG TABLET. PO SCH (08:15)
[2020-08-14] MEDS: ALLOPURINOL 300 MG TABLET. PO SCH (08:15)
[2020-08-14] MEDS ORDERED: METOPROLOL SUCC 24HR ER 50 MG TAB.ER.24H. PO SCH (09:00)
[2020-08-14 11:38] VITALS: BP 140/90
[2020-08-14 13:43] LABS: CALCIUM 6.7 mg/dL (8.5-10.1); POTASSIUM 3.2 mmol/L (3.5-5.1)
[2020-08-14 13:49] LABS: ALBUMIN 2.6 g/dL (3.4-5.0); ALBUMIN/GLOBULIN RATIO 0.8 (1.0-1.7); TOTAL BILIRUBIN 1.4 mg/dL (0.2-1.0)
[2020-08-14] MEDS ORDERED: LORazepam 1 MG TABLET PO PRN (14:00)
[2020-08-14] MEDS ORDERED: HALOPERIDOL LACT 5 MG/ML VIAL. IM PRN (14:00)
[2020-08-14] MEDS ORDERED: chlordiazePOXIDE HCL 25 MG CAPSULE PO PRN ×2 (14:00)
[2020-08-14] MEDS ORDERED: cloNIDine HCL 0.1 MG TABLET PO PRN (14:00)
[2020-08-14] MEDS ORDERED: diphenhydrAMINE 50 MG/ML VIAL IVP PRN (14:00)
[2020-08-14 14:04] LABS: HEMATOCRIT 30.8 % (39.0-53.0); HEMOGLOBIN 10.4 g/dL (13.0-17.5); RED BLOOD COUNT 3.03 x10^6/uL (4.30-5.70); RED CELL DISTRIBUTION WIDTH 14.2 % (11.5-14.5)
[2020-08-14 15:18] VITALS: BP 142/84
[2020-08-14] MEDS: MVI, ADULT NO.4 WITH VIT K 10 ML, THIAMINE INJ 100 MG, FOLIC ACID INJ 1 MG in IV NORMAL... IV SCH (16:00)
[2020-08-14 18:33] VITALS: BP 151/88
--- NOTE | 2020-08-14 20:26 | PN ---
DATE: 08/14/2020 SUBJECTIVE: The patient is resting, slightly propped up in bed, no apparent distress, awake, alert. On questioning him, he stated that he has multiple episodes of loose bowel movement; however, he denied any nausea or vomiting. Denied any abdominal pain. Denied any chills, rigors or fever. PHYSICAL EXAMINATION: GENERAL: When I examined him this afternoon, he looked well and was clearly in no apparent respiratory distress, pale, but no jaundice, cyanosis or thyromegaly. No jugular venous distention. No limb edema. VITAL SIGNS: His heart rate was 78, blood pressure was 140/90, temperature was 97.4, respiratory rate 20, and oxygen saturation was 94%. HEENT: Showed normocephalic, atraumatic. NECK: Supple. CARDIAC: Normal first and second heart sounds. No gallop or murmur. CHEST: Clear to auscultation. No crepitation or rhonchi. ABDOMEN: Distended, soft, nontender. NEUROLOGIC: He is awake, alert, responding appropriately. All cranial nerves are intact. He moves upper extremities to much greater extent than lower extremities. He is mostly bedbound, chair bound. He has marked muscle wasting of both lower extremities. His intake and output is incompletely recorded. LABORATORY DATA: Today's labs are still pending at the time of this dictation. ASSESSMENT: 1. Severe lactic acidosis, resolved. 2. Acute kidney injury, improving. 3. Right lower lobe infiltrate for which he is now on IV antibiotic. OTHER MEDICAL PROBLEMS: Include: A. Hypertension. B. Chronic kidney disease. C. Weight loss. D. 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 NELLY LUA MD DR: LEE/salinas JOB#: [id number] / [id number]
[2020-08-14 23:00] VITALS: BP 140/86
[2020-08-15] MEDS: POTASSIUM CL 20MEQ D5-0.2%NACL 1,000 ML IV SCH (00:28)
[2020-08-15] MEDS: PIPERACILLIN/TAZOBACTAM 2.25 GM in IV NORMAL SALINE 50ML 50 ML IV SCH (05:22)
[2020-08-15 06:16] LABS: CALCIUM 6.6 mg/dL (8.5-10.1); CREATININE 0.8 mg/dL (0.7-1.3); GFR 99.6
[2020-08-15 07:11] VITALS: BP 156/98
[2020-08-15] MEDS: PANTOPRAZOLE 40 MG TABLET. PO SCH (07:30)
[2020-08-15] MEDS: INSULIN LISPRO 300 UNITS/3 ML VIAL. SQ SCH ×3 (08:00→17:00)
[2020-08-15] MEDS: DOCUSATE SODIUM 100 MG CAPSULE PO SCH ×2 (08:57→20:06)
[2020-08-15] MEDS: LACTOBACILLUS RHAMNOSUS GG 1 CAPSULE. PO SCH ×2 (08:57→20:06)
[2020-08-15] MEDS: ALLOPURINOL 300 MG TABLET. PO SCH (09:00)
[2020-08-15] MEDS: MVI, ADULT NO.4 WITH VIT K 10 ML, THIAMINE INJ 100 MG, FOLIC ACID INJ 1 MG in IV NORMAL... IV SCH (09:36)
[2020-08-15] MEDS ORDERED: LABETALOL 20 MG/4 ML DISP.SYRIN. IVP PRN (09:45)
[2020-08-15 11:51] VITALS: BP 120/77
[2020-08-15] MEDS: PIPERACILLIN/TAZOBACTAM 4.5 GM in IV NORMAL SALINE 50ML 50 ML IV SCH ×2 (14:18→21:01)
[2020-08-15 15:14] VITALS: BP 145/99
[2020-08-15 19:00] VITALS: BP 144/93
[2020-08-15 23:00] VITALS: BP 144/102
--- NOTE | 2020-08-15 23:19 | PN ---
DATE: 08/15/2020 ATTENDING PHYSICIAN: Dr. Lynn. SUBJECTIVE: The patient was snoring earlier. He is arousable. He remains very confused. He denied any pain or discomfort. OBJECTIVE FINDINGS: VITAL SIGNS: Heart rate baseline is at 101 per minute, temperature 97.8 degrees Fahrenheit, blood pressure 140/86, and oxygen saturation 97% on room air. HEENT: Head is without trauma. Pupils are reactive. Sclerae are nonicteric. The oropharynx is clear. There is no stridor. NECK: Supple. LUNGS: Shallow respirations, otherwise clear. CARDIOVASCULAR: Showed regular heart tones. No gallops. ABDOMEN: Soft. Hypoactive bowel sounds. There is no guarding or rebound tenderness. EXTREMITIES: Show no cyanosis or edema. NEUROLOGIC: The patient is confused. He is nonambulatory at this time. PERTINENT LABORATORY DATA: Today, potassium remains low at 3.0 mEq per liter, sodium 141 mEq, creatinine of 0.8 mg/dL. Hemoglobin 10.4 g/dL with white count of 5000. Chest x-ray reviewed. ASSESSMENT: 1. A 59-year-old gentleman with chronic alcoholism. 2. Dehydration. 3. Alcoholic myopathy with resultant weakness. 4. Component of Wernicke-Korsakoff syndrome. 5. Hypokalemia. 6. Tachyarrhythmia. PLAN: 1. Continue banana bag intravenous infusion. 2. Intravenous labetalol in place of oral. 3. Swallow evaluation. 4. Serial chemistries. 5. P.r.n. Ativan. POONAM FUENTES MD DR: DOMONIQUE/salinas JOB#: [id number] / [id number]
[2020-08-16] MEDS: PIPERACILLIN/TAZOBACTAM 4.5 GM in IV NORMAL SALINE 50ML 50 ML IV SCH (05:00)
[2020-08-16 07:00] VITALS: BP 143/93
[2020-08-16] MEDS: INSULIN LISPRO 300 UNITS/3 ML VIAL. SQ SCH ×2 (08:00→12:00)
[2020-08-16] MEDS: LACTOBACILLUS RHAMNOSUS GG 1 CAPSULE. PO SCH (09:00)
[2020-08-16] MEDS: MVI, ADULT NO.4 WITH VIT K 10 ML, THIAMINE INJ 100 MG, FOLIC ACID INJ 1 MG in IV NORMAL... IV SCH (10:19)
[2020-08-16 11:00] VITALS: BP 148/100
[2020-08-16] MEDS ORDERED: AMOX1TAB58 PO (14:59)
--- NOTE | 2020-08-17 04:07 | PN ---
DATE: 08/16/2020 ATTENDING PHYSICIAN: Dr. yLnn/Dr. Fuentes. SUBJECTIVE: The patient is somewhat arousable. He remains very confused. He is nonambulatory. OBJECTIVE FINDINGS: VITAL SIGNS: Blood pressure today is 144/102, pulse is 102 and regular. He is afebrile. Oxygen saturation 97% on 2 liters of nasal cannula. HEENT: Head is without trauma. Pupils are reactive. Sclerae nonicteric. Oropharynx clear. No stridor. NECK: Supple. LUNGS: Shallow respirations. CARDIOVASCULAR: Showed regular heart tones. No gallops. ABDOMEN: Soft. EXTREMITIES: Without edema. He is nonambulatory. NEUROLOGIC: He is not aware of person, place or time. PERTINENT LABORATORY DATA: Yesterday's CBC showed a hemoglobin 10.4 g, white cell count is 5000. Nonfasting blood sugar 105. Potassium, repeat chemistries pending. ASSESSMENT: 1. A 59-year-old gentleman with chronic alcoholism. 2. Dehydration. 3. Alcoholic myopathy with resultant profound weakness. 4. Wernicke-Korsakoff syndrome. 5. Hypokalemia. 6. Tachyarrhythmia. PLAN: 1. Continue IV infusion. 2. Intravenous labetalol. 3. Swallow evaluation. 4. P.r.n. Ativan. 5. environmental services director for discharge planning. POONAM FUENTES MD DR: DOMONIQUE/salinas JOB#: [id number] / [id number]
--- NOTE | 2020-08-17 10:30 | DS ---
DATE OF DISCHARGE: 08/16/2020 ATTENDING PHYSICIAN: Dr. Lynn. FINAL DISCHARGE DIAGNOSES: 1. Chronic alcoholism. 2. Dehydration. 3. Alcoholic myopathy with resultant weakness. 4. Wernicke-Korsakoff syndrome. 5. Hypokalemia. 6. Tachyarrhythmia. HISTORY AND PHYSICAL: This 59-year-old gentleman, chronic alcoholic, who was admitted with vague nonspecific complaints. He continues to drink heavily. He has severe myopathy. He and his also drank and she enabled his alcohol use. PHYSICAL EXAMINATION: Please see the dictated note. PERTINENT LABORATORY AND X-RAY STUDIES: Admission chest x-ray showed subtle patchy infiltrates in the peripheral right lower lung. Certainly aspiration is a consideration. Hemoglobin on admission was 12.2 g/dL, white count 9500. Chemistry panel showed a sodium 141, potassium 3.0. He was asymptomatic. This was to be followed up as an outpatient after replacement. Urinalysis is unremarkable. Serology for coronavirus was not detected. COURSE IN THE HOSPITAL: The patient was admitted. He was given banana bag and IV hydration, potassium supplementation along with magnesium. Heart rate was better controlled with IV beta blockers. He woke up and he felt better. He received 4 full days of IV antibiotics. On the fourth hospital day, the patient woke up and insisted on going home. was also calling to take care of him. His COVID swab was negative. Therefore, he is discharged with Augmentin 500/125 one b.i.d. for 7 days, metoprolol 100 mg daily and omeprazole 20 mg daily. Strong encouragement to quit drinking whether or not he will do so remains to be seen. He will follow up and recheck chemistry panel with his PCP as schedule hopefully in the next week or two. He was discharged then in stable condition with explicit instructions and followup care. POONAM FUENTES MD DR: DOMONIQUE/salinas JOB#: [id number] / [id number] NELLY Valderrama MD
== END 2020-08-16 16:30 | disposition home or self-care (01) | DRG 91 ==
LOC: ER 11:14 → 1 SOUTH 08-13 13:00 → ICU 08-14 18:46
PROVIDERS: ADMIT Internal Medicine; ATTEND Internal Medicine
DX: G72.1 Alcoholic myopathy (principal); J18.9 Pneumonia, unspecified organism; N17.9 Acute kidney failure, unspecified; E87.2 Acidosis; E86.0 Dehydration; E87.5 Hyperkalemia; N18.9 Chronic kidney disease, unspecified; I12.9 Hypertensive chronic kidney disease with stage 1 through stage 4 chronic kidney disease, or unspecified chronic kidney disease; Y95 Nosocomial condition; F10.26 Alcohol dependence with alcohol-induced persisting amnestic disorder; G62.9 Polyneuropathy, unspecified; E87.6 Hypokalemia; Z20.828 Contact with and (suspected) exposure to other viral communicable diseases; Z74.01 Bed confinement status; Z79.899 Other long term (current) drug therapy; Z85.828 Personal history of other malignant neoplasm of skin; Z88.2 Allergy status to sulfonamides; Z80.9 Family history of malignant neoplasm, unspecified; Z82.49 Family history of ischemic heart disease and other diseases of the circulatory system
CPT/HCPCS: 36415; 71045; 80048; 80053; 80307; 81001; 82947; 83605; 84484; 85007; 85025; 85027; 85379; 87040; 87086; 93005; 96361; 96365; 96366; 96372; 96375; G0480; J1650; J1815; J2060; J2405; J2543; J3490; U0003; 99291-25; J7030